=== PATIENT | female | born 1950 | race Caucasian/White ===

== ENCOUNTER → 2016-12-08 | Outpatient (REF) | payer MEDICARE ==
[2016-12-08 11:41] LABS: MEAN CORPUSCULAR HEMOGLOBIN 30.9 pg (27.0-33.0); MEAN CORPUSCULAR HGB CONC 32.9 g/dl (32.0-36.5); RED CELL DISTRIBUTION WIDTH 12.9 % (11.5-14.5); WHITE BLOOD COUNT 5.7 K/mm3 (4.0-10.0)
[2016-12-08 12:17] LABS: ALBUMIN 3.7 GM/DL (3.2-5.2); ALBUMIN/GLOBULIN RATIO 1.09 (1.00-1.93); ALKALINE PHOSPHATASE 118 U/L (45-117); ALT/SGPT 19 U/L (12-78); ANION GAP 8 MEQ/L (8-16); AST/SGOT 12 U/L (15-37); BILIRUBIN,TOTAL 0.3 MG/DL (0.2-1.0); BLOOD UREA NITROGEN 20 MG/DL (7-18); CALCIUM LEVEL 9.1 MG/DL (8.8-10.2); CARBON DIOXIDE LEVEL 30 MEQ/L (21-32); CHLORIDE LEVEL 107 MEQ/L (98-107); CHOLESTEROL LEVEL 140 MG/DL (<200); CREATININE FOR GFR 0.55 MG/DL (0.55-1.02); GLOMERULAR FILTRATION RATE > 60.0 (>45); GLUCOSE, FASTING 87 MG/DL (80-110); POTASSIUM SERUM 4.2 MEQ/L (3.5-5.1); SODIUM LEVEL 145 MEQ/L (136-145); TOTAL PROTEIN 7.1 GM/DL (6.4-8.2); TRIGLYCERIDES LEVEL 86 MG/DL (<150)
== END ==
LOC: M SFHCPLAZ 08:05
PROVIDERS: ATTEND Internal Medicine
DX: D64.9 Anemia, unspecified (principal); I48.0 Paroxysmal atrial fibrillation; E78.00 Pure hypercholesterolemia, unspecified

== ENCOUNTER → 2017-12-03 | Outpatient (REF) | payer MEDICARE ==
[2017-12-03 13:20] LABS: APPEARANCE, URINE HAZY (CLEAR); BACTERIA, URINE AUTO 2+ (NEGATIVE); BILIRUBIN, URINE AUTO NEGATIVE (NEGATIVE); BLOOD, URINE BLOOD 3+ (NEGATIVE); COLOR, URINE YELLOW (YELLOW); GLUCOSE, URINE (UA) AUTO NEGATIVE (NEGATIVE); KETONE, URINE AUTO NEGATIVE (NEGATIVE); LEUKOCYTE ESTERASE, URINE AUTO 3+ (NEGATIVE); MUCUS, URINE SMALL (NEGATIVE); NITRITE, URINE AUTO POSITIVE (NEGATIVE); PROTEIN, URINE AUTO 1+ mg/dL (NEGATIVE); RBC, URINE AUTO 33 /HPF (0-3); SPECIFIC GRAVITY URINE AUTO 1.005 (1.002-1.035); SQUAMOUS EPITHELIAL CELL UR AU 0 /HPF (0-6); UROBILINOGEN, URINE AUTO 0.2 mg/dL (0.0-2.0); WBC, URINE AUTO 65 /HPF (0-3)
== END ==
LOC: M SFHCPLAZ 12:20
DX: R30.0 Dysuria (principal)
CPT/HCPCS: 81001

== ENCOUNTER → 2017-12-12 | Outpatient (REF) | payer MEDICARE ==
[2017-12-12 13:44] LABS: HEMATOCRIT 38.5 % (36.0-47.0); HEMOGLOBIN 11.8 g/dl (12.0-15.5); MEAN CORPUSCULAR HGB CONC 30.6 g/dl (32.0-36.5); MEAN CORPUSCULAR VOLUME 94.6 fl (80.0-96.0); PLATELET COUNT, AUTOMATED 406 10^3/uL (150-450); RED BLOOD COUNT 4.07 10^6/uL (4.00-5.40); RED CELL DISTRIBUTION WIDTH 14.2 % (11.5-14.5); WHITE BLOOD COUNT 5.2 10^3/uL (4.0-10.0)
[2017-12-12 13:48] LABS: APPEARANCE, URINE CLEAR (CLEAR); BACTERIA, URINE AUTO NEGATIVE (NEGATIVE); BILIRUBIN, URINE AUTO NEGATIVE (NEGATIVE); BLOOD, URINE BLOOD NEGATIVE (NEGATIVE); COLOR, URINE YELLOW (YELLOW); GLUCOSE, URINE (UA) AUTO NEGATIVE (NEGATIVE); KETONE, URINE AUTO NEGATIVE (NEGATIVE); LEUKOCYTE ESTERASE, URINE AUTO NEGATIVE (NEGATIVE); MUCUS, URINE SMALL (NEGATIVE); NITRITE, URINE AUTO NEGATIVE (NEGATIVE); PROTEIN, URINE AUTO NEGATIVE (NEGATIVE); RBC, URINE AUTO 3 /HPF (0-3); SPECIFIC GRAVITY URINE AUTO 1.017 (1.002-1.035); SQUAMOUS EPITHELIAL CELL UR AU 0 /HPF (0-6); UROBILINOGEN, URINE AUTO 0.2 mg/dL (0.0-2.0); WBC, URINE AUTO 1 /HPF (0-3)
[2017-12-12 14:33] LABS: ALBUMIN 3.8 GM/DL (3.2-5.2); ALBUMIN/GLOBULIN RATIO 1.15 (1.00-1.93); ALKALINE PHOSPHATASE 109 U/L (45-117); ALT/SGPT 17 U/L (12-78); ANION GAP 7 MEQ/L (8-16); AST/SGOT 11 U/L (7-37); BILIRUBIN,TOTAL 0.3 MG/DL (0.2-1.0); BLOOD UREA NITROGEN 17 MG/DL (7-18); CALCIUM LEVEL 8.9 MG/DL (8.8-10.2); CARBON DIOXIDE LEVEL 30 MEQ/L (21-32); CHLORIDE LEVEL 107 MEQ/L (98-107); CHOLESTEROL LEVEL 136 MG/DL (<200); CHOLESTEROL RISK RATIO 2.566 (<5); CREATININE FOR GFR 0.48 MG/DL (0.55-1.30); GLOMERULAR FILTRATION RATE > 60.0 (>45); GLUCOSE, FASTING 81 MG/DL (70-100); HDL CHOLESTEROL 53 MG/DL (>40); LDL CHOLESTEROL 69 MG/DL (<100); MAGNESIUM LEVEL 2.3 MG/DL (1.8-2.4); NON-HDL-C 83 MG/DL; POTASSIUM SERUM 4.3 MEQ/L (3.5-5.1); SODIUM LEVEL 144 MEQ/L (136-145); TOTAL PROTEIN 7.1 GM/DL (6.4-8.2); TRIGLYCERIDES LEVEL 71 MG/DL (<150)
== END ==
LOC: M SFHCPLAZ 11:11
DX: D64.9 Anemia, unspecified (principal); I48.0 Paroxysmal atrial fibrillation; K21.9 Gastro-esophageal reflux disease without esophagitis; R31.9 Hematuria, unspecified
CPT/HCPCS: 83735

== ENCOUNTER 2018-01-16 10:50 | Emergency (ER) | payer MEDICARE ==
[2018-01-16 11:35] LABS: BASO # 0.1 10^3/uL (0.0-0.2); BASO % 1.1 % (0.0-1.0); EOS # 0.4 10^3/uL (0.0-0.50); EOS % 7.1 % (0.0-3.0); HEMATOCRIT 37.8 % (36.0-47.0); HEMOGLOBIN 11.9 g/dl (12.0-15.5); IMMATURE GRANULOCYTE % 0.4 % (0-3.0); LYMPH # 1.3 10^3/uL (1.5-4.5); LYMPH % 24.5 % (24.0-44.0); MEAN CORPUSCULAR HGB CONC 31.5 g/dl (32.0-36.5); MEAN CORPUSCULAR VOLUME 92.2 fl (80.0-96.0); MONO # 0.5 10^3/uL (0.0-0.8); MONO % 9.8 % (0.0-5.0); NEUTROPHILS % 57.1 % (36.0-66.0); PLATELET COUNT, AUTOMATED 374 10^3/uL (150-450); RED CELL DISTRIBUTION WIDTH 13.9 % (11.5-14.5); WHITE BLOOD COUNT 5.2 10^3/uL (4.0-10.0)
[2018-01-16 11:50] LABS: INR 0.96; PROTHROMBIN TIME 12.9 SECONDS (12.1-14.4)
[2018-01-16 11:51] LABS: PARTIAL THROMBOPLASTIN TIME 28.6 SECONDS (25.4-37.6)
[2018-01-16] MEDS: ACETAMINOPHEN TAB 650MG DOSE (2X325MG) PO (12:04)
[2018-01-16 12:05] LABS: ALBUMIN 3.5 GM/DL (3.2-5.2); ALBUMIN/GLOBULIN RATIO 0.78 (1.00-1.93); ALKALINE PHOSPHATASE 124 U/L (45-117); ALT/SGPT 22 U/L (12-78); ANION GAP 7 MEQ/L (8-16); AST/SGOT 19 U/L (7-37); BILIRUBIN,DIRECT 0.1 MG/DL (0.0-0.2); BILIRUBIN,TOTAL 0.5 MG/DL (0.2-1.0); BLOOD UREA NITROGEN 10 MG/DL (7-18); CALCIUM LEVEL 9.3 MG/DL (8.8-10.2); CARBON DIOXIDE LEVEL 29 MEQ/L (21-32); CHLORIDE LEVEL 104 MEQ/L (98-107); CPK CREATINE PHOSPHOKINASE 61 U/L (26-192); CREATININE FOR GFR 0.54 MG/DL (0.55-1.30); FREE T4 1.04 NG/DL (0.76-1.46); GLOMERULAR FILTRATION RATE > 60.0 (>45); GLUCOSE, FASTING 84 MG/DL (70-100); LIPASE 87 U/L (73-393); NT-PRO BNP 77 PG/ML (<125); POTASSIUM SERUM 4.1 MEQ/L (3.5-5.1); SODIUM LEVEL 140 MEQ/L (136-145); TROPONIN I < 0.02 NG/ML (< 0.10)
[2018-01-16] MEDS ORDERED: ISOVUE-370 76% 100ML VIAL (Q9967) As Ordered (12:12)
[2018-01-16 12:30] LABS: CK-MB VALUE MASS < 1.0 NG/ML (<3.6); MB/CK RELATIVE INDEX 1.64 (< OR =4)
== END 2018-01-16 13:25 | disposition home or self-care (01) ==
LOC: M ED 10:50
DX: R07.9 Chest pain, unspecified (principal); M54.9 Dorsalgia, unspecified; R94.31 Abnormal electrocardiogram [ECG] [EKG]; I48.91 Unspecified atrial fibrillation; Z88.2 Allergy status to sulfonamides; Z79.899 Other long term (current) drug therapy
CPT/HCPCS: Q9967

== ENCOUNTER → 2018-02-18 | Outpatient (CLI) | payer MEDICARE | LOC: M WHC 11:04 | DX: Z13.820 Encounter for screening for osteoporosis (principal); M81.0 Age-related osteoporosis without current pathological fracture | CPT/HCPCS: 77080 ==

== ENCOUNTER → 2018-02-18 | Outpatient (CLI) | payer MEDICARE | LOC: M WHC 10:57 | DX: N64.4 Mastodynia (principal) | CPT/HCPCS: 76642 ==

== ENCOUNTER → 2018-04-16 | Outpatient (REF) | payer MEDICARE ==
[~2018-04-16] MED LIST: ASPI1TAB PO; CALC600T60 PO; MAGN1TAB39 PO; MULTCAP9 PO; NEXI40GR PO; NORCOTAB PO
[2018-04-17 14:44] LABS: BLOOD UREA NITROGEN 16 MG/DL (7-18); CALCIUM LEVEL 8.7 MG/DL (8.8-10.2); CARBON DIOXIDE LEVEL 29 MEQ/L (21-32); CHLORIDE LEVEL 104 MEQ/L (98-107); CREATININE FOR GFR 0.53 MG/DL (0.55-1.30); GLOMERULAR FILTRATION RATE > 60.0 (>45); GLUCOSE, FASTING 65 MG/DL (70-100); POTASSIUM SERUM 4.7 MEQ/L (3.5-5.1); SODIUM LEVEL 141 MEQ/L (136-145)
== END ==
LOC: M LAB REF 14:27
PROVIDERS: ATTEND Internal Medicine
DX: K76.9 Liver disease, unspecified (principal)

== ENCOUNTER → 2018-04-16 | Outpatient (REF) | payer MEDICARE ==
[2018-04-16 19:14] LABS: INR 0.99; PARTIAL THROMBOPLASTIN TIME 29.4 SECONDS (25.4-37.6); PROTHROMBIN TIME 13.2 SECONDS (12.1-14.4)
[2018-04-16 19:37] LABS: ALBUMIN 3.7 GM/DL (3.2-5.2); ALT/SGPT 62 U/L (12-78); BILIRUBIN,DIRECT 0.1 MG/DL (0.0-0.2); BILIRUBIN,TOTAL 0.2 MG/DL (0.2-1.0); TOTAL PROTEIN 7.8 GM/DL (6.4-8.2)
[2018-04-19 12:29] LABS: CA19-9 TUMOR MARKER,CARBOHYDRA 8.6 U/ML (<35.0)
== END ==
LOC: M LAB REF 16:55
PROVIDERS: ATTEND Internal Medicine Pulmonary Disease
DX: R91.8 Other nonspecific abnormal finding of lung field (principal)

== ENCOUNTER → 2018-04-17 | Outpatient (CLI) | payer MEDICARE ==
--- NOTE | 2018-04-17 09:13 | REP ---
Clinical: Abnormal liver findings. Technique: Garcia scale ultrasound using curved array transducer. Findings: The liver demonstrates heterogeneous echotexture and includes multiple hypoechoic mass lesions most notably within the right lobe measuring 4.8 x 3.8 x 4.1 cm, 3.3 x 1.6 x 3.3 cm, and 3.1 x 2.2 x 2.5 cm. Further smaller lesions cannot be excluded and are suspected. The the pancreas is incompletely evaluated due to interposed bowel gas but visualized portions appear normal. The gallbladder is normal without gallstones, wall thickening or pericholecystic fluid. No biliary ductal dilatation is appreciated, and the common bile duct measures 5.2 mm diameter. The right kidney is normal in reniform shape without hydronephrosis and measures 10.0 x 4.5 x 4.3 cm and demonstrates normal extrarenal pelvis. No ascites. Visualized portions of the abdominal aorta normal. Impression: Multiple hypoechoic lesions within the liver measuring up to 4.8 cm maximal diameter cannot be further characterized by ultrasound. Consider pre and postcontrast CT of the abdomen using hepatic mass protocol for more definitive evaluation. Electronically Signed by Hunter Puentes MD 04/17/2018 09:05 A
== END ==
LOC: M RAD 07:40
PROVIDERS: ATTEND Internal Medicine Pulmonary Disease
DX: R93.2 Abnormal findings on diagnostic imaging of liver and biliary tract (principal)

== ENCOUNTER → 2018-04-23 | Outpatient (CLI) | payer MEDICARE ==
[~2018-04-23] MED LIST changes: +ISOVUE-370 76% 100ML VIAL (Q9967) As Ordered ONE
--- NOTE | 2018-04-23 20:53 | REP ---
CT abdomen and pelvis with a IV and oral contrast: History: Hepatic lesions consistent with metastatic disease. Comparison CT chest imaging April 09, 2018. CT contrast dose: 100 mL of intravenous Isovue 370. 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 Multiple hepatic masses are confirmed consistent with metastatic disease. These ill-defined hypodense lesions range in size up to 4.9 x 4.1 cm. They are noted in the right and left lobe of the liver. There are multiple liver lesions. The liver is not enlarged overall. Spleen is normal in size homogeneous in texture. No adrenal lesion is observed. No pancreatic mass lesion is seen. The gallbladder is small and contracted but unremarkable. The kidneys enhance symmetrically and are morphologically intact. There is moderate left periaortic retroperitoneal lymphadenopathy. This is fairly bulky. The largest left periaortic lymph node measures 3.7 x 2.2 x 2.2. This displaces the gonadal veins laterally. A second left periaortic lymph node measures 3.6 x 2.1 x 1.9 cm. The uterus is surgically absent. There is a small simple appearing cyst in the right adnexa 1.9 cm in diameter. However, there is a large multicystic appearing mass in the left adnexa measuring 9.3 by 8.2 by 8.1 cm. No pelvic mass or adenopathy is seen apart from this. This may reflect primary ovarian malignancy. Small and large intestinal bowel loops are unremarkable in the abdomen and pelvis. Bone window settings show no bony destructive lesion. The appendix is surgically absent by history. Impression: Multiple metastatic liver masses. Fairly bulky periaortic retroperitoneal lymphadenopathy. Large left pelvic mass consistent with primary ovarian malignancy or large confluent adenopathy. No evidence of ascites. Electronically Signed by Bebo Peck MD 04/24/2018 06:37 P
== END ==
LOC: M RAD 15:28
PROVIDERS: ATTEND Internal Medicine
DX: C78.7 Secondary malignant neoplasm of liver and intrahepatic bile duct (principal); R59.0 Localized enlarged lymph nodes; R19.04 Left lower quadrant abdominal swelling, mass and lump
CPT/HCPCS: 74178; Q9967

== ENCOUNTER → 2018-04-25 | Outpatient (CLI) | payer MEDICARE ==
[~2018-04-25] MED LIST changes: -ISOVUE-370 76% 100ML VIAL (Q9967) As Ordered ONE; +LIDOCAINE 1% MDV 20ML VIAL As Ordered ONE; +MIDAZOLAM INJ 2 MG/2 ML VIAL (J2250) As Ordered ONE; +fentaNYL 100 MCG/2 ML INJECTION (J3010) As Ordered ONE
--- NOTE | 2018-04-25 17:53 | REP ---
ULTRASOUND-GUIDED LIVER BIOPSY The procedure was performed under the direct supervision of Dr. Peck. The patient has a history of multiple metastatic liver masses seen on a previous CT scan dated 04/23/2018. The risks and benefits of the procedure were explained to the patient and informed consent was obtained. A lesion in the right lobe of the liver was localized using ultrasound guidance. The skin was prepped and draped in a sterile fashion. 1% lidocaine was used as a local anesthetic. Using ultrasound guidance a 19/20 gauge coaxial needle biopsy system was inserted and advanced into the mass. Five core biopsy samples were obtained and sent to lab. The patient tolerated the procedure well and there were no immediate complications. After the appropriate amount of monitored convalescence the patient was discharged from the department. Reviewed by JALEN Winters 04/25/2018 02:43 P Electronically Signed by Bebo Peck MD 04/25/2018 05:44 P
== END ==
LOC: M RADPRO 08:04
PROVIDERS: ATTEND Internal Medicine
DX: C78.7 Secondary malignant neoplasm of liver and intrahepatic bile duct (principal); Z79.82 Long term (current) use of aspirin; Z79.899 Other long term (current) drug therapy; Z88.2 Allergy status to sulfonamides; Z91.018 Allergy to other foods
CPT/HCPCS: 47000; 76942; 88307; 88341; 88342; J2250; J3010

== ENCOUNTER → 2018-04-29 | Outpatient (REF) | payer MEDICARE ==
[~2018-04-29] MED LIST changes: -LIDOCAINE 1% MDV 20ML VIAL As Ordered ONE; -MIDAZOLAM INJ 2 MG/2 ML VIAL (J2250) As Ordered ONE; -fentaNYL 100 MCG/2 ML INJECTION (J3010) As Ordered ONE
== END ==
LOC: M SFHCPLAZ 12:22
PROVIDERS: ATTEND Internal Medicine
DX: C56.9 Malignant neoplasm of unspecified ovary (principal); Z53.8 Procedure and treatment not carried out for other reasons

== ENCOUNTER → 2018-04-29 | Outpatient (CLI) | payer MEDICARE ==
[2018-04-29 19:56] LABS: BASO # 0.1 10^3/uL (0.0-0.2); BASO % 0.9 % (0.0-1.0); EOS # 0.2 10^3/uL (0.0-0.50); EOS % 2.8 % (0.0-3.0); HEMATOCRIT 37.2 % (36.0-47.0); HEMOGLOBIN 11.4 g/dl (12.0-15.5); LYMPH % 14.6 % (24.0-44.0); MEAN CORPUSCULAR HEMOGLOBIN 28.8 pg (27.0-33.0); MEAN CORPUSCULAR HGB CONC 30.6 g/dl (32.0-36.5); MEAN CORPUSCULAR VOLUME 93.9 fl (80.0-96.0); MONO # 0.9 10^3/uL (0.0-0.8); MONO % 13.8 % (0.0-5.0); NEUTROPHILS # 4.5 10^3/uL (1.8-7.7); NEUTROPHILS % 67.8 % (36.0-66.0); PLATELET COUNT, AUTOMATED 379 10^3/uL (150-450); RED BLOOD COUNT 3.96 10^6/uL (4.00-5.40); WHITE BLOOD COUNT 6.7 10^3/uL (4.0-10.0)
== END ==
LOC: M SMT 12:59
PROVIDERS: ATTEND Internal Medicine
DX: C56.9 Malignant neoplasm of unspecified ovary (principal)

== ENCOUNTER → 2018-05-17 | Outpatient (CLI) | payer MEDICARE ==
[~2018-05-17] MED LIST changes: +CLIN1GEL22; +LIDO2.5C15 TOP; +MAGN64TASA PO; +ONDA8TAB8 PO; +PROC10TA4 PO; +RANI15TA PO; +RETI0.0215 TOP; +SUCR1TAB56 PO; +TRIA0.1L; +VITA500T3 PO
--- NOTE | 2018-05-17 15:54 | REP ---
SOFT-TISSUE ULTRASOUND LEFT BREAST History: Recent development of palpable lump in the inferior aspect of the left breast. History of left breast soreness and pain radiating to the axilla. Recently diagnosed metastatic ovarian carcinoma. Sonographic findings: Scanning in the inferior aspect 7 o'clock position left breast demonstrates a fixed elongate hypoechoic to anechoic expansile rib lesion deep to the breast tissue in the left chest wall. The expansile anterior rib lesion measures 3.6 x 1.5 x 2.1 cm in overall dimension. No breast mass lesion or cyst is seen. Heterogeneous fibroglandular background echotexture is seen. Sonogram is otherwise unremarkable. Impression: BIRADS category 0 incomplete imaging evaluation. Expansile and suspicious rib lesion deep to the breast tissue at approximately the left anterior 5th rib. 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 A PET/CT study is already scheduled and will provide additional information. The findings were reviewed with the referring provider at the time of this exam. Electronically Signed by Bebo Peck MD 05/17/2018 05:05 P
== END ==
LOC: M RAD 14:17
PROVIDERS: ATTEND Internal Medicine Hematology & Oncology
DX: R92.8 Other abnormal and inconclusive findings on diagnostic imaging of breast (principal)

== ENCOUNTER → 2018-05-20 | Outpatient (CLI) | payer MEDICARE ==
[~2018-05-20] MED LIST changes: +XANA0.5T PO
--- NOTE | 2018-05-20 14:04 | REP ---
Chest x-ray: Two views. History: Abnormal lung findings. Comparison chest x-ray January 16, 2018. Findings: The lungs are well inflated and clear. Pleural angles are sharp. Cardiomediastinal silhouette is unremarkable. There is diffuse osteopenia. No focal bony abnormality is appreciated. Impression: No active disease. Electronically Signed by Bebo Peck MD 05/20/2018 01:55 P
== END ==
LOC: M SMT 13:01
PROVIDERS: ATTEND Thoracic Surgery (Cardiothoracic Vascular Surgery)
DX: R91.8 Other nonspecific abnormal finding of lung field (principal)

== ENCOUNTER 2018-05-21 09:54 | Day surgery (SDC) | payer MEDICARE ==
[~2018-05-21] VITALS: Ht 162.6 cm; Wt 67.3 kg
[~2018-05-21 09:54] MED LIST changes: -LIDO2.5C15 TOP; -ONDA8TAB8 PO; -PROC10TA4 PO; -XANA0.5T PO
[2018-05-21] MEDS ORDERED: LR 1,000 ML IV ONE (10:15)
[2018-05-21] MEDS ORDERED: MUPIROCIN 2% OINT 22 GM TUBE TOP ONE (10:30)
[2018-05-21] MEDS ORDERED: PROPOFOL 500 MG/50 ML VIAL As Ordered ONE (11:42)
[2018-05-21] MEDS ORDERED: MIDAZOLAM INJ 2 MG/2 ML VIAL (J2250) As Ordered ONE (11:43)
[2018-05-21] MEDS ORDERED: fentaNYL 100 MCG/2 ML INJECTION (J3010) As Ordered ONE (11:43)
[2018-05-21] MEDS ORDERED: LIDOCAINE 2% INJ 100 MG/5 ML SDV (FOR ANES.) As Ordered ONE (11:43)
[2018-05-21] MEDS ORDERED: PROPOFOL 200 MG/20 ML VIAL As Ordered ONE (11:48)
[2018-05-21] MEDS ORDERED: HEPARIN SOD (PORCINE) 5000 UNITS/ML VIAL As Ordered ONE (12:10)
[2018-05-21] MEDS ORDERED: BUPIVACAINE LIPOSOME/PF 1.3% 20ML VIAL (13.3MG/ML)(EXPAREL)(C9290 PER1MG) As Ordered ONE (12:10)
[2018-05-21] MEDS ORDERED: LIDOCAINE 1% SDV INJ 30 ML VIAL As Ordered ONE (12:10)
[2018-05-21] MEDS ORDERED: dexameTHASONE 4 MG/ML 1ML VIAL (J1100) As Ordered ONE (13:01)
[2018-05-21] MEDS ORDERED: ONDANSETRON 4MG/2ML VIAL (J2405) As Ordered ONE (13:01)
--- NOTE | 2018-05-21 13:23 | REP ---
Chest x-ray: Partial study single view. History: Yfpjxf-E-Afvf insertion. 26 seconds of fluoroscopy time is reported. Findings: A single last image hold fluoroscopically obtained spot radiograph of the right chest documents right subclavian Pzdedp-M-Wtds catheter placement. Electronically Signed by Bebo Peck MD 05/21/2018 01:14 P
--- NOTE | 2018-05-21 13:46 | REP ---
CHEST, PORTABLE: Single view of the chest is performed. Right Mediport catheter is placed. The tip is in the superior vena cava. There is no pneumothorax. No new infiltrate is seen. Heart is normal in size and the mediastinal silhouette is unchanged. IMPRESSION: Placement of right central venous catheter with the tip in the superior vena cava. No pneumothorax. Electronically Signed by Johnny Garcia MD 05/22/2018 09:10 A
[2018-05-21] MEDS ORDERED: LIDO2.5C15 TOP (13:47)
[2018-05-21] MEDS ORDERED: PROC10TA4 PO (13:47)
[2018-05-21] MEDS ORDERED: ONDA8TAB8 PO (13:47)
[2018-05-21 14:10] VITALS: BP 162/69
--- NOTE | 2018-05-22 15:01 | RO ---
DATE OF PROCEDURE: 05/21/2018 PREPROCEDURE DIAGNOSIS: Metastatic ovarian carcinoma, in need of vascular access for chemotherapy. POSTPROCEDURE DIAGNOSIS: Metastatic ovarian carcinoma, in need of vascular access for chemotherapy. PROCEDURE: Insertion of right subclavian vein PowerPort with fluoroscopic control. SURGEON: Catarino Rahman MD VISUAL MANAGER: ANESTHESIA: Monitored anesthesia care (MAC). FINDINGS: All contours were smooth, and the catheter was placed at the junction of the superior vena cava (SVC) and the right atrium. DESCRIPTION OF PROCEDURE: Under satisfactory MAC anesthesia, the patient was prepped and draped in the usual sterile fashion. The infraclavicular fossa on the right side was infiltrated with 1% lidocaine. The vein was found on the first pass, and a wire was passed with production of premature ventricular contractions without difficulty. The port site was marked and infiltrated with Exparel. Incision was made and carried down into the subcutaneous tissue where subcutaneous pocket was then created by use of electrocautery and blunt dissection. The wire tract was then incised, dilated, and a Peel-Away introducer placed. Catheter was placed, low numbers down, into the right atrium. A tunnel was then created between the wire site and the port site and the catheter pulled through and positioned under fluoroscopic control at the junction of the superior vena cava and the right atrium. The catheter was cut to an appropriate size. Collar was placed and connected to the port. The port was then flushed with heparinized saline. The port was then secured to the chest wall with two #2-0 silk sutures. A final flush of 100 units/mL of heparin was then administered. Port aspirated and flushed well. Final x-rays were taken and showed all contours to be smooth and the catheter in the proper position. The wound was closed with running #3-0 Vicryl suture for the subcutaneous tissues and running #4-0 Monocryl subcuticular for the skin. Patient tolerated the procedure well and left the operating room in satisfactory condition for the recovery room.
[2018-05-24] MEDS ORDERED: XANA0.5T PO (13:26)
== END 2018-05-21 14:31 | disposition home or self-care (01) ==
LOC: M SDC 09:54
PROVIDERS: ATTEND Thoracic Surgery (Cardiothoracic Vascular Surgery)
DX: C56.9 Malignant neoplasm of unspecified ovary (principal); C78.7 Secondary malignant neoplasm of liver and intrahepatic bile duct; Z45.2 Encounter for adjustment and management of vascular access device; K21.9 Gastro-esophageal reflux disease without esophagitis; I25.2 Old myocardial infarction; M81.0 Age-related osteoporosis without current pathological fracture; Z88.2 Allergy status to sulfonamides; Z79.82 Long term (current) use of aspirin; Z79.899 Other long term (current) drug therapy
CPT/HCPCS: 36561; 71045; 76000; C1788; C9290; J0690; J1100; J2250; J2405; J3010

== ENCOUNTER → 2018-05-22 | Outpatient (CLI) | payer MEDICARE ==
[~2018-05-22] MED LIST changes: +LIDO2.5C15 TOP; +ONDA8TAB8 PO; +PROC10TA4 PO; +XANA0.5T PO
--- NOTE | 2018-05-22 17:05 | REP ---
PET/CT: History: Staging metastatic left ovarian carcinoma. Comparisons: Comparison is made with CT study of the abdomen and chest from March and May 08, 2018 as well as left breast sonography from May 17, 2018. TECHNIQUE: 57 minutes following the intravenous injection of a 8.44 mCi dose of F-18 FDG, three-dimensional PET scintigraphy is acquired from the skull base to the proximal thighs. Triplanar noncontrast CT scanning is acquired through the same anatomic range for attenuation correction, and image registration with scan parameters optimized to minimize radiation exposure to the patient. PET scintigraphy and CT datasets were fused and displayed on a workstation with multiplanar and projection display capability. PET/CT Findings: The known large left pelvic mass shows a predominantly peripheral pattern of hypermetabolic uptake consistent with cystic tumor versus central necrosis. Maximum standard uptake value in the peripheral hypermetabolic sections ranges up to a maximum S U V value of 29.81 inferiorly. The known left periaortic lymphadenopathy is hypermetabolic as well, maximum standard uptake value 14.28. Multiple hypermetabolic hepatic mets are seen. These range in avidity up to a maximum standard uptake value of 15.28. There is a hypermetabolic mass surrounding the left anterior 5th rib. This corresponds to the sonographic findings on left breast sonography and the palpable lump on physical exam. Maximum standard uptake value in this lesion is 9.39. There is one other skeletal lesion. This is in the left L5 pedicle where there is a small 1 cm focus of hypermetabolic uptake with maximum SUV of 6.52. There are no corresponding bony changes on the accompanying CT. There is a mildly hypermetabolic lung nodule in the right upper lobe. Maximum standard uptake value is 4.91. There is non hypermetabolic FDG accumulation in the left upper lobe nodule, maximum SUV 1.49. Impression: The left pelvic mass is hypermetabolic. There is evidence of metastatic periaortic lymphadenopathy, with liver, lung, and skeletal metastatic lesions as above. Electronically Signed by Bebo Peck MD 05/22/2018 05:15 P
== END ==
LOC: M PLARAD 13:03
PROVIDERS: ATTEND Internal Medicine Hematology & Oncology
DX: C56.2 Malignant neoplasm of left ovary (principal); C79.51 Secondary malignant neoplasm of bone; C78.01 Secondary malignant neoplasm of right lung; C78.7 Secondary malignant neoplasm of liver and intrahepatic bile duct
CPT/HCPCS: 78815; A9552

== ENCOUNTER → 2018-05-30 | Outpatient (CLI) | payer MEDICARE ==
[~2018-05-30] MED LIST changes: +PROHANCE 279.3MG/ML 15ML VIAL (A9576) As Ordered ONE
--- NOTE | 2018-05-31 08:56 | REP ---
MRI BRAIN WITHOUT CONTRAST: HISTORY: Memory difficulty. CONTRAST: ProHance 13 mL. Areas of increased signal intensity on T2-weighted images are present in the periventricular and subcortical white matter and barbie. This represents small vessel ischemic disease. There is no intraparenchymal hemorrhage, infarct, mass or midline shift. There is no abnormal enhancement. The ventricular system is normal in appearance. There is no extracerebral collection. The visualized sinuses are clear. IMPRESSION: Small vessel ischemic disease. Electronically Signed by Bello Stephenson MD 05/31/2018 09:12 A
== END ==
LOC: M RAD 16:57
PROVIDERS: ATTEND Internal Medicine Hematology & Oncology
DX: C56.9 Malignant neoplasm of unspecified ovary (principal); C78.7 Secondary malignant neoplasm of liver and intrahepatic bile duct; I67.82 Cerebral ischemia; C79.51 Secondary malignant neoplasm of bone
CPT/HCPCS: 70553; A9576

== ENCOUNTER → 2018-05-30 | Outpatient (CLI) | payer MEDICARE ==
[~2018-05-30] MED LIST changes: -PROHANCE 279.3MG/ML 15ML VIAL (A9576) As Ordered ONE
--- NOTE | 2018-05-30 14:15 | REP ---
Chest two views HISTORY: Abnormal lung field Comparison: 05/21/2018 The lungs are clear. The heart is normal in size. The pulmonary vasculature is normal in appearance. The bony structure is intact. An Kjgcfg-G-Seub catheter is present. IMPRESSION: No acute disease. Electronically Signed by Bello Stephenson MD 05/30/2018 02:05 P
== END ==
LOC: M SMT 13:22
PROVIDERS: ATTEND Thoracic Surgery (Cardiothoracic Vascular Surgery)
DX: R91.8 Other nonspecific abnormal finding of lung field (principal)

== ENCOUNTER 2018-06-10 01:43 | Emergency (ER) | payer MEDICARE ==
[~2018-06-10] VITALS: Ht 162.6 cm; Wt 66.8 kg
[~2018-06-10 01:43] MED LIST changes: -ASPI1TAB PO; +ASPI81TA26 PO; -CARB50IN13 IV; -FLEC50HA PO; +HYDR-3715 PO; -NORCOTAB PO; -PACL150I IV; -TAXOL; -TRIA0.1L; +TRIA2LOT
[2018-06-10] MEDS ORDERED: CARB50IN13 IV (01:52)
[2018-06-10] MEDS ORDERED: TAXOL (01:52)
[2018-06-10 02:10] LABS: HEMATOCRIT 36.7 % (36.0-47.0); HEMOGLOBIN 11.6 g/dl (12.0-15.5); MEAN CORPUSCULAR HEMOGLOBIN 29.4 pg (27.0-33.0); MEAN CORPUSCULAR HGB CONC 31.6 g/dl (32.0-36.5); MEAN CORPUSCULAR VOLUME 92.9 fl (80.0-96.0); PLATELET COUNT, AUTOMATED 250 10^3/uL (150-450); RED BLOOD COUNT 3.95 10^6/uL (4.00-5.40); WHITE BLOOD COUNT 21.6 10^3/uL (4.0-10.0)
[2018-06-10] MEDS ORDERED: METOPROLOL 5 MG/5 ML VIAL IV STA (02:13)
[2018-06-10] MEDS: FLECAINIDE 50MG TABLET PO ONE ×2 (02:15→02:18)
[2018-06-10 02:30] VITALS: BP 158/97
[2018-06-10 02:30] LABS: BASOPHILS 1 % (0-4); DOHLE BODIES 2+; EOSINOPHILS 1 % (0-5); LYMPHOCYTES 10 % (16-52); METAMYELOCYTES 1 % (0-0); MONOCYTES 9 % (0-8); NEUTROPHILS 78 % (35-75); PLATELET ESTIMATE NORMAL (NORMAL)
[2018-06-10 02:31] LABS: TOXIC GRANULATION 1+
[2018-06-10 02:32] LABS: HYPOCHROMASIA 1+; SMUDGE CELLS 1+
[2018-06-10 02:33] LABS: ANISOCYTOSIS 1+
[2018-06-10 02:35] LABS: BLOOD UREA NITROGEN 10 MG/DL (7-18); CARBON DIOXIDE LEVEL 30 MEQ/L (21-32); CHLORIDE LEVEL 101 MEQ/L (98-107); CK-MB VALUE MASS < 1.0 NG/ML (<3.6); CPK CREATINE PHOSPHOKINASE 42 U/L (26-192); CREATININE FOR GFR 0.63 MG/DL (0.55-1.30); GLOMERULAR FILTRATION RATE > 60.0 (>45); GLUCOSE, FASTING 112 MG/DL (70-100); MB/CK RELATIVE INDEX 2.38 (< OR =4); POTASSIUM SERUM 3.7 MEQ/L (3.5-5.1); SODIUM LEVEL 138 MEQ/L (136-145); TROPONIN I < 0.02 NG/ML (< 0.10)
[2018-06-10] MEDS ORDERED: METOPROLOL TART 25 MG TABLET PO ONE (02:45)
[2018-06-10] MEDS ORDERED: FLECAINIDE 50MG TABLET PO ONE ×2 (02:45→03:00)
[2018-06-10] MEDS ORDERED: FLEC50HA PO (04:40)
[2018-06-10 04:45] VITALS: BP 108/62
--- NOTE | 2018-06-10 05:48 | ECGEPIP ---
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
--- NOTE | 2018-06-10 08:51 | REP ---
PORTABLE CHEST: AP portable view of the chest is performed and compared to prior study of 05/30/2018. There is no acute infiltrate. The heart is normal in size. The mediastinal silhouette is unchanged. Right central venous catheter is seen with the tip in the superior vena cava. IMPRESSION: No acute infiltrate. Electronically Signed by Johnny Garcia MD 06/10/2018 09:39 A
--- NOTE | 2018-06-10 21:06 | ECGEPIP ---
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
[2018-06-12] MEDS ORDERED: PACL150I IV (08:33)
[2018-06-19] MEDS ORDERED: DOXY-350 PO (12:58)
== END 2018-06-10 05:06 | disposition home or self-care (01) ==
LOC: M ED 01:43
DX: I48.91 Unspecified atrial fibrillation (principal); D64.9 Anemia, unspecified; K21.9 Gastro-esophageal reflux disease without esophagitis; C56.9 Malignant neoplasm of unspecified ovary; C79.51 Secondary malignant neoplasm of bone; Z88.2 Allergy status to sulfonamides; Z91.011 Allergy to milk products; Z91.018 Allergy to other foods; Z79.899 Other long term (current) drug therapy; Z79.82 Long term (current) use of aspirin

== ENCOUNTER → 2018-06-10 | Outpatient (REF) | payer MEDICARE ==
[~2018-06-10] MED LIST changes: +CARB50IN13 IV; +FLEC50HA PO; +PACL150I IV; +TAXOL
[2018-06-11 17:33] LABS: FREE T4 1.29 NG/DL (0.76-1.46); THYROID STIMULATING HORMONE 1.75 uIU/ML (0.358-3.740)
== END ==
LOC: M SFHCPLAZ 16:23
PROVIDERS: ATTEND Internal Medicine
DX: I48.0 Paroxysmal atrial fibrillation (principal)

== ENCOUNTER → 2018-07-23 | Outpatient (CLI) | payer MEDICARE ==
[~2018-07-23] MED LIST changes: +AUGM500T34 PO; +CARB50IN13 IV; +CIPR-249 PO; +DOXY-350 PO; +FLEC50HA PO; +PACL150I IV; +PROHANCE 279.3MG/ML 15ML VIAL (A9576) As Ordered ONE; +TAXOL; +TRIA2LOT TOP
--- NOTE | 2018-07-23 21:25 | REP ---
MRI brain without and with IV gadolinium: History: Ovarian carcinoma. Sudden onset right leg numbness and tingling. Comparison MRI study is from May 30, 2018. The gadolinium enhancement dose is 13 mL of intravenous ProHance. Technique: Axial and sagittal imaging planes are utilized for T1 and T2-weighted scans. Sequences include spin-echo, fast spin echo, FLAIR, and diffusion weighted sequences. MRI findings: No bony calvarial lesion is seen. No intraorbital abnormality is appreciated. No evidence of intracranial mass lesion is seen. There are periventricular white matter hyperintensities and subcortical white matter hyperintensities on T2-weighted scans consistent with small vessel change. These are stable when compared with the May 30, 2018 prior study. There is no evidence of intracranial mass lesion. Diffusion-weighted scans show no evidence to suggest acute ischemia. Postcontrast images show no abnormal intracranial contrast enhancement. Impression: Small vessel changes as before. There is no evidence of intracranial metastasis. No acute infarction or mass seen. Electronically Signed by Bebo Peck MD 07/23/2018 10:39 P
--- NOTE | 2018-07-23 21:29 | REP ---
MRI lumbar spine without and with IV gadolinium: History: Ovarian carcinoma. Sudden onset of right lower extremity numbness and tingling. Technique: Sagittal and axial T1 and T2-weighted scans are acquired in the usual fashion with and without fat saturation. Sequences include spin echo, turbo spin-echo, and STIR imaging sequences. Gadolinium enhancement dose is 13 ml of intravenous ProHance. MRI findings: Lumbar vertebral body heights are preserved. Alignment is normal. There is a 16 mm focus of low T1, high STIR signal intensity with fairly avid contrast enhancement involving the left pedicle at L5. This corresponds to the area of hypermetabolic uptake on recent PET-CT and is consistent with a small hematogenous skeletal metastasis. There is no evidence of extra osseous or epidural disease at this level however. Cortical and medullary bone signal intensity are otherwise normal. The tip of the conus medullaris is normal in position and appearance at L1. There appear to be small left periaortic lymph nodes, the largest of these measures 1 cm in short axis dimension. No paravertebral soft-tissue mass is appreciated. No other abnormal gadolinium enhancement is seen. There are mild facet hypertrophy changes at the L5-S1 and L4-5 bilaterally. These two discs are slightly narrowed. No disc herniation is seen. The exam is otherwise unremarkable. Impression: The previously identified skeletal metastasis involving the left pedicle at L5 is again seen 1.6 cm in greatest diameter. There is no evidence of cauda equina or other significant thecal sac compression. Electronically Signed by Bebo Peck MD 07/23/2018 10:39 P
== END ==
LOC: M RAD 15:56
PROVIDERS: ATTEND Internal Medicine Hematology & Oncology
DX: C56.9 Malignant neoplasm of unspecified ovary (principal); C79.51 Secondary malignant neoplasm of bone; C79.31 Secondary malignant neoplasm of brain
CPT/HCPCS: 70553; 72158; A9576

== ENCOUNTER → 2018-07-25 | Outpatient (CLI) | payer MEDICARE ==
[~2018-07-25] MED LIST changes: -PROHANCE 279.3MG/ML 15ML VIAL (A9576) As Ordered ONE
--- NOTE | 2018-07-25 19:36 | ECHO ---
DATE OF PROCEDURE: 07/25/2017 AGE: 67 GENDER: Female HEIGHT: 65 inches WEIGHT: 146 pounds BODY SURFACE AREA: 1.73 m2 PATIENT LOCATION: outpatient. REFERRING PHYSICIAN: Dr. Ralph Maldonado INDICATION: Potentially cardiotoxic chemotherapy. 2-D MEASUREMENTS: RV: 3.4 cm LV: 4.1 cm Septum: 0.9 cm Posterior wall: 0.9 cm Aortic root: 2.9 cm LA: 3.0 cm LVEF: 65% DOPPLER MEASUREMENTS: AV: 1.4 m/s LVOT: 0.98 m/s LVOT diameter: 1.9 cm MV-E: 82, A: 84, EA ratio: 1 Early mitral deceleration time: 232 ms E prime: 10, A prime: 9.6 E/E prime ratio: 8.2 PV: 0.8 m/s Pulmonary artery acceleration time: 120 ms RVSP: 27 mmHg IVC: 1.4 cm COMMENTS: Normal sinus rhythm without intraventricular conduction disturbance. Normal left ventricular size, wall thickness and wall motion. Normal left atrial size and Doppler assessment of LV diastolic function and current estimated mean left atrial pressure. Normal right heart chamber sizes and motion with Doppler evidence of pulmonary arterial pressure upper limits of normal. Normal IVC size and collapse against an elevated central venous pressure. Normal appearing and functioning valvular structures. Normal aortic root size. No apparent intracardiac mass or pericardial effusion.
== END ==
LOC: M CARPUL 11:38
PROVIDERS: ATTEND Internal Medicine Hematology & Oncology
DX: Z01.818 Encounter for other preprocedural examination (principal); C56.9 Malignant neoplasm of unspecified ovary; Z92.21 Personal history of antineoplastic chemotherapy

== ENCOUNTER → 2018-08-07 | Outpatient (CLI) | payer MEDICARE ==
--- NOTE | 2018-08-08 15:38 | REP ---
REASON: History of ovarian carcinoma. COMPARISON: PET/CT multiple, latest 05/22/2018. After the intravenous administration of 9.76 millicuries of FDG 18 triplane whole body PET/CT was performed from the skull base of the mid thigh. The extensive hypermetabolic activity seen in the retroperitoneum on the prior examination of 05/22/2018 has abated. The markedly abnormal large hypermetabolic foci seen previously in the liver have also abated. The nodule seen previously in the right lung upper lobe which had maximal SUV values of 4.9 shows no abnormal hypermetabolic activity today. The hypermetabolic activity seen previously in the left hemipelvis has also abated, however, a large mass persists. There are multiple foci of hypermetabolism seen in the bone marrow particularly the spine possibly secondary to chemo reactive change and/or underlying but treated skeletal metastatic disease. No other areas of abnormal hypermetabolic activity seen in the neck, chest, abdomen, or pelvis. IMPRESSION: There has been significant improvement in the appearance of the PET findings as described above when compared to the latest prior of 05/22/2018. Electronically Signed by Devendra Cullen DO 08/08/2018 03:51 P
== END ==
LOC: M PLARAD 13:26
PROVIDERS: ATTEND Internal Medicine Hematology & Oncology
DX: C56.2 Malignant neoplasm of left ovary (principal)

== ENCOUNTER → 2018-08-15 | Outpatient (REF) | payer MEDICARE ==
[2018-08-15 15:06] LABS: FOLATE 21.2 NG/ML; RHEUMATOID FACTOR QUANT < 10.0 IU/ML (<15.0); VITAMIN B12 LEVEL > 2000 PG/ML
[2018-08-15 15:27] LABS: HEMOGLOBIN A1c 5.4 %
[2018-08-19 15:22] LABS: ANTINUCLEAR ANTIBODIES DIRECT Negative (Negative); VITAMIN B1 LEVEL WHOLE BLOOD 33.6 nmol/L (66.5-200.0); VITAMIN B6,PYRIDOXAL PHOSPHATE 21.1 ug/L (2.0-32.8); VITAMIN E(ALPHA TOCOPHEROL) 16.9 mg/L (9.0-29.0); VITAMIN E(GAMMA TOCOPHEROL) 0.9 mg/L (0.5-4.9)
[2018-08-20 08:13] LABS: DRVV SCREEN 37.4 SEC
[2018-08-20 08:17] LABS: PTT LUPUS TYPE ANTICOAG SCREEN 0.9 (0-1.2)
[2018-08-20 11:08] LABS: ALBUMIN 4.16 GM/DL (3.29-5.55); ALBUMIN % 59.4 % (55.8-66.1); ALPHA-1-GLOBULIN % 4.8 % (2.9-4.9); ALPHA-1-GLOBULINS 0.34 GM/DL (0.17-0.41); ALPHA-2-GLOBULINS 0.74 GM/DL (0.42-0.99); ALPHA-2-GLOBULINS % 10.5 % (7.1-11.8); BETA-1-GLOBULINS 0.46 GM/DL (0.28-0.60); BETA-1-GLOBULINS % 6.5 % (4.7-7.2); BETA-2-GLOBULINS 0.43 GM/DL (0.19-0.55); BETA-2-GLOBULINS % 6.1 % (3.2-6.5); GAMMA GLOBULIN % 12.7 % (11.1-18.8); GAMMA GLOBULINS 0.89 GM/DL (0.65-1.58)
== END ==
LOC: M LABNEURO 10:27
PROVIDERS: ATTEND Psychiatry & Neurology Neurology
DX: G62.9 Polyneuropathy, unspecified (principal); Z79.82 Long term (current) use of aspirin; Z79.899 Other long term (current) drug therapy

== ENCOUNTER → 2018-09-26 | Outpatient (CLI) | payer MEDICARE ==
[~2018-09-26] MED LIST changes: +CYAN500T8 PO; -VITA500T3 PO
[2018-09-26 13:50] LABS: BASO % 0.3 % (0.0-1.0); EOS # 0.1 10^3/uL (0.0-0.50); EOS % 2.7 % (0.0-3.0); HEMATOCRIT 32.2 % (36.0-47.0); HEMOGLOBIN 10.1 g/dl (12.0-15.5); LYMPH # 0.9 10^3/uL (1.5-4.5); MEAN CORPUSCULAR HEMOGLOBIN 35.6 pg (27.0-33.0); MEAN CORPUSCULAR HGB CONC 31.4 g/dl (32.0-36.5); MEAN CORPUSCULAR VOLUME 113.4 fl (80.0-96.0); MONO # 0.4 10^3/uL (0.0-0.8); MONO % 12.9 % (0.0-5.0); NEUTROPHILS # 1.5 10^3/uL (1.8-7.7); NEUTROPHILS % 52.1 % (36.0-66.0); PLATELET COUNT, AUTOMATED 297 10^3/uL (150-450); RED BLOOD COUNT 2.84 10^6/uL (4.00-5.40); WHITE BLOOD COUNT 2.9 10^3/uL (4.0-10.0)
[2018-09-26 13:59] LABS: INR 1.02; PROTHROMBIN TIME 13.1 SECONDS (11.8-14.0)
[2018-09-26 14:00] LABS: PARTIAL THROMBOPLASTIN TIME 29.8 SECONDS (25.0-38.4)
[2018-09-26 14:50] LABS: ALBUMIN 3.6 GM/DL (3.2-5.2); ALT/SGPT 21 U/L (12-78); BILIRUBIN,TOTAL 0.2 MG/DL (0.2-1.0); BLOOD UREA NITROGEN 10 MG/DL (7-18); CALCIUM LEVEL 8.5 MG/DL (8.8-10.2); CARBON DIOXIDE LEVEL 29 MEQ/L (21-32); CHLORIDE LEVEL 107 MEQ/L (98-107); CREATININE FOR GFR 0.44 MG/DL (0.55-1.30); GLOMERULAR FILTRATION RATE > 60.0 (>45); GLUCOSE, FASTING 83 MG/DL (70-100); POTASSIUM SERUM 4.8 MEQ/L (3.5-5.1); SODIUM LEVEL 143 MEQ/L (136-145)
[2018-09-27 11:41] LABS: CA 125 5.5 U/ML (<30.2)
[2018-09-27 14:09] LABS: HE4 52.1 pmol/L (0.0-96.5)
== END ==
LOC: M SMT 09:30
PROVIDERS: ATTEND Obstetrics & Gynecology Gynecologic Oncology
DX: C56.2 Malignant neoplasm of left ovary (principal)

== ENCOUNTER → 2018-10-28 | Outpatient (CLI) | payer MEDICARE ==
[~2018-10-28] MED LIST changes: +DOXY100C PO; +FLON1SPR NARES; +FLUO0.0119 OTIC; +MULT1CAP3 PO
--- NOTE | 2018-10-28 10:48 | REP ---
MUGA SCAN: Prior to chemotherapy due to ovarian carcinoma. After the intravenous administration of 27.5 millicuries technetium 99m UltraTag labeled RBCs, a MUGA scan was obtained. The estimated ejection fraction calculation is 79.9%. This is normal. No abnormal ventricular wall motility was noted. IMPRESSION: Normal exam. Electronically Signed by Devendra Cullen DO 10/28/2018 12:27 P
== END ==
LOC: M RAD 07:47
PROVIDERS: ATTEND Internal Medicine
DX: C56.9 Malignant neoplasm of unspecified ovary (principal)
CPT/HCPCS: 78472; A9560

== ENCOUNTER 2018-11-11 14:34 | Emergency (ER) | payer MEDICARE ==
[~2018-11-11] VITALS: Ht 162.6 cm; Wt 66.8 kg
[2018-11-11 15:39] LABS: HEMATOCRIT 35.2 % (36.0-47.0); HEMOGLOBIN 11.2 g/dl (12.0-15.5); MEAN CORPUSCULAR HEMOGLOBIN 33.6 pg (27.0-33.0); MEAN CORPUSCULAR HGB CONC 31.8 g/dl (32.0-36.5); MEAN CORPUSCULAR VOLUME 105.7 fl (80.0-96.0); PLATELET COUNT, AUTOMATED 132 10^3/uL (150-450); RED BLOOD COUNT 3.33 10^6/uL (4.00-5.40); WHITE BLOOD COUNT 6.8 10^3/uL (4.0-10.0)
[2018-11-11 16:02] LABS: ALBUMIN 3.6 GM/DL (3.2-5.2); ALT/SGPT 37 U/L (12-78); BILIRUBIN,DIRECT < 0.1 MG/DL (0.0-0.2); BILIRUBIN,TOTAL 0.2 MG/DL (0.2-1.0); BLOOD UREA NITROGEN 12 MG/DL (7-18); CALCIUM LEVEL 9.2 MG/DL (8.8-10.2); CARBON DIOXIDE LEVEL 33 MEQ/L (21-32); CHLORIDE LEVEL 102 MEQ/L (98-107); CREATININE FOR GFR 0.49 MG/DL (0.55-1.30); GLOMERULAR FILTRATION RATE > 60.0 (>45); GLUCOSE, FASTING 126 MG/DL (70-100); LIPASE 95 U/L (73-393); SODIUM LEVEL 140 MEQ/L (136-145); TOTAL PROTEIN 7.3 GM/DL (6.4-8.2)
[2018-11-11 16:26] LABS: EOSINOPHILS 6 % (0-3); LYMPHOCYTES 20 % (16-44); METAMYELOCYTES 1 % (0-0); MONOCYTES 4 % (0-5); NEUTROPHILS 66 % (28-66); PLATELET ESTIMATE DECREASED (NORMAL)
[2018-11-11] MEDS ORDERED: NS 1,000 ML IV ONE (17:00)
[2018-11-11] MEDS ORDERED: ISOVUE-370 76% 100ML VIAL (Q9967) As Ordered ONE (17:11)
[2018-11-11 17:37] LABS: CK-MB VALUE MASS < 1.0 NG/ML (<3.6); CPK CREATINE PHOSPHOKINASE 31 U/L (26-192); MAGNESIUM LEVEL 1.7 MG/DL (1.8-2.4); MB/CK RELATIVE INDEX 3.23 (< OR =4); TROPONIN I < 0.02 NG/ML (< 0.10)
[2018-11-11 19:00] VITALS: BP 137/67
--- NOTE | 2018-11-11 19:07 | REPVR ---
EXAM: CT Angiography Chest With Contrast EXAM DATE/TIME: 11/11/2018 5:59 PM CLINICAL HISTORY: 68 years old, female; Chest pain; Additional info: Adbl pain - stage 4 ov CA, sp resection TECHNIQUE: Imaging protocol: Computed tomographic angiography images of the chest with intravenous contrast using CT angiography protocol. 3D rendering: MIP reconstructed images were created and reviewed. Radiation optimization: All CT scans at this facility use at least one of these dose optimization techniques: automated exposure control; mA and/or kV adjustment per patient size (includes targeted exams where dose is matched to clinical indication); or iterative reconstruction. Contrast material: ISOVUE 370; Contrast volume: 100 ml; Contrast route: IV; COMPARISON: CT ANGIO CHEST 01/16/2018 12:31 PM FINDINGS: Pulmonary arteries: There is opacification of the pulmonary arteries with no evidence of pulmonary embolus. Aorta: There is opacification of the aorta which appears intact. 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 Lungs: The lungs appear clear. Pleural space: There is no evidence of pneumothorax. There is no evidence of pleural effusion. Heart: The heart is top normal in size. There is no pericardial effusion. Lymph nodes: Prominent lymphoid tissue in the right suprahilar region unchanged since the CT of December. Bones/joints: There is no evidence of bony abnormality. Soft tissues: Unremarkable. IMPRESSION: No evidence of pulmonary embolus. Electronically signed by: Shree Dutta On 11/11/2018 19:07:07 PM
--- NOTE | 2018-11-11 19:29 | REPVR ---
EXAM: CT Abdomen and Pelvis With Contrast EXAM DATE/TIME: 11/11/2018 5:59 PM CLINICAL HISTORY: 68 years old, female; Abdominal pain; Generalized; Additional info: Adbl pain - stage 4 ov CA, sp resection TECHNIQUE: Imaging protocol: Computed tomography images of the abdomen and pelvis with intravenous contrast. Radiation optimization: All CT scans at this facility use at least one of these dose optimization techniques: automated exposure control; mA and/or kV adjustment per patient size (includes targeted exams where dose is matched to clinical indication); or iterative reconstruction. Contrast material: ISOVUE 370; Contrast volume: 100 ml; Contrast route: IV; COMPARISON: CT ABD PELVIS W/O FOL BY WIT 04/23/2018 4:22 PM FINDINGS: Liver: Normal appearing liver. In April there are large low density lesions through the liver which are no longer identified. Gallbladder and bile ducts: Normal gallbladder. Normal common bile duct. Pancreas: Normal pancreas. Spleen: Normal spleen. Adrenals: Normal adrenal glands. Kidneys and ureters: There is opacification of the kidneys. There is no evidence of obstruction of the right or left ureter. Stomach and bowel: The cecum is in the right pelvis. There are surgical clips along the margin of the cecum. Appendix: No evidence of appendicitis. Intraperitoneal space: There is no evidence of pneumoperitoneum. There is no evidence of free fluid in the abdomen or the pelvis. Vasculature: There is opacification of the SMA. There is opacification of the aorta. Lymph nodes: Normal. No enlarged lymph nodes. Bladder: Small amount of urine in the urinary bladder. Reproductive: Patient is status post hysterectomy. Bones/joints: No acute fracture. No dislocation. Soft tissues: Unremarkable. Other findings: There is opacification of the SMV. IMPRESSION: 1. Large low density lesions in the liver seen in April are no longer identified. 2. No evidence of pelvic mass. COMMENT: Consistent with the [employer]'s Incidental Findings Committee Report (J Am Bonnie Radiol 2010): Unless the patient's specific circumstances suggest otherwise, any liver lesion 0.5 cm or less, any cystic kidney lesion less than 1.0 cm, and/or any adrenal lesion 1.0 cm or less not otherwise characterized in this report as possessing suspicious or indeterminate imaging features is/are highly likely to be benign and do not require follow-up imaging or biopsy. Electronically signed by: Shree uDtta On 11/11/2018 19:29:36 PM
--- NOTE | 2018-11-11 20:53 | ECGEPIP ---
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
[2018-11-27] MEDS ORDERED: L-GL500T5 PO (10:40)
[2018-11-27] MEDS ORDERED: DEXA4TA PO (11:29)
[2018-11-27] MEDS ORDERED: GABA-1171 PO (11:35)
== END 2018-11-11 20:18 | disposition home or self-care (01) ==
LOC: M ED 14:34
DX: R10.9 Unspecified abdominal pain (principal); I48.91 Unspecified atrial fibrillation; C56.9 Malignant neoplasm of unspecified ovary; K21.9 Gastro-esophageal reflux disease without esophagitis; Z79.82 Long term (current) use of aspirin; Z79.899 Other long term (current) drug therapy; Z91.011 Allergy to milk products; Z88.2 Allergy status to sulfonamides; Z91.018 Allergy to other foods
CPT/HCPCS: 71275; 74177; 80048; 80076; 81001; 82550; 82553; 83690; 83735; 84484; 85025; 93005; 93041; 99284; Q9967

== ENCOUNTER → 2018-12-19 | Outpatient (REF) | payer MEDICARE ==
[~2018-12-19] MED LIST changes: +DEXA4TA PO; +GABA-1171 PO; +L-GL500T5 PO
[2018-12-19 10:53] LABS: APPEARANCE, URINE HAZY (CLEAR); BACTERIA, URINE AUTO NEGATIVE (NEGATIVE); BILIRUBIN, URINE AUTO NEGATIVE (NEGATIVE); BLOOD, URINE BLOOD 1+ (NEGATIVE); COLOR, URINE YELLOW (YELLOW); GLUCOSE, URINE (UA) AUTO NEGATIVE (NEGATIVE); KETONE, URINE AUTO NEGATIVE (NEGATIVE); LEUKOCYTE ESTERASE, URINE AUTO TRACE (NEGATIVE); MUCUS, URINE SMALL (NEGATIVE); NITRITE, URINE AUTO NEGATIVE (NEGATIVE); PROTEIN, URINE AUTO NEGATIVE (NEGATIVE); RBC, URINE AUTO 3 /HPF (0-3); SPECIFIC GRAVITY URINE AUTO 1.008 (1.002-1.035); SQUAMOUS EPITHELIAL CELL UR AU 0 /HPF (0-6); UROBILINOGEN, URINE AUTO 0.2 mg/dL (0.0-2.0); WBC, URINE AUTO 2 /HPF (0-3)
[2018-12-19 11:30] LABS: ALBUMIN 3.7 GM/DL (3.2-5.2); ALT/SGPT 21 U/L (12-78); BILIRUBIN,TOTAL 0.3 MG/DL (0.2-1.0); BLOOD UREA NITROGEN 12 MG/DL (7-18); CALCIUM LEVEL 9.1 MG/DL (8.8-10.2); CARBON DIOXIDE LEVEL 33 MEQ/L (21-32); CHLORIDE LEVEL 105 MEQ/L (98-107); CREATININE FOR GFR 0.53 MG/DL (0.55-1.30); GLOMERULAR FILTRATION RATE > 60.0 (>45); GLUCOSE, FASTING 79 MG/DL (70-100); MAGNESIUM LEVEL 1.9 MG/DL (1.8-2.4); POTASSIUM SERUM 4.2 MEQ/L (3.5-5.1); SODIUM LEVEL 143 MEQ/L (136-145); TOTAL PROTEIN 7.7 GM/DL (6.4-8.2)
[2018-12-19 11:33] LABS: TOTAL 25(OH) VITAMIN D 49.7 NG/ML (30.0-100.0)
== END ==
LOC: M SFHCPLAZ 08:58
PROVIDERS: ATTEND Internal Medicine
DX: I48.0 Paroxysmal atrial fibrillation (principal); K21.9 Gastro-esophageal reflux disease without esophagitis; R31.9 Hematuria, unspecified; M81.0 Age-related osteoporosis without current pathological fracture

== ENCOUNTER → 2019-01-21 | Outpatient (CLI) | payer MEDICARE ==
[~2019-01-21] MED LIST changes: +AVASINJ IV; +CALCCAP4 PO
--- NOTE | 2019-01-21 17:43 | REP ---
PET/CT: History: Restaging ovarian carcinoma. Status post neoadjuvant chemotherapy followed by debulking surgery and adjuvant chemotherapy. Comparisons: Comparison PET-CT study is from Aug 07 1018. There is a May 22, 2018 prior PET-CT as well. TECHNIQUE: 56 minutes following the intravenous injection of a 8.45 mCi dose of F-18 FDG, three-dimensional PET scintigraphy is acquired from the skull base to the proximal thighs. Triplanar noncontrast CT scanning is acquired through the same anatomic range for attenuation correction, and image registration with scan parameters optimized to minimize radiation exposure to the patient. PET scintigraphy and CT datasets were fused and displayed on a workstation with multiplanar and projection display capability. PET/CT Findings: There is a 7 mm non hypermetabolic nodule in the left lower lobe as previously seen. Maximum standard uptake value in this nodule is 1.83. No other abnormal pulmonary parenchymal hypermetabolic uptake is seen. No other significant pulmonary nodule is appreciated. No hilar or mediastinal hypermetabolic uptake is seen. Head and neck soft tissues are unremarkable. There is no abnormal hypermetabolic uptake in the liver. The previously noted hypermetabolic uptake in the retroperitoneum is not apparent. No abnormal pelvic hypermetabolic uptake is seen. The previously noted cystic lesion has been removed. There is no abnormal skeletal hypermetabolic uptake visible on today's scan. The skeletal metastatic foci in the hepatic metastatic foci observed on the PET CT study from May 22, 2018 have all resolved. Impression: No abnormal hypermetabolic uptake. Electronically Signed by Bebo Peck MD 01/21/2019 07:52 P
== END ==
LOC: M PLARAD 07:31
PROVIDERS: ATTEND Internal Medicine Medical Oncology
DX: C56.2 Malignant neoplasm of left ovary (principal)
CPT/HCPCS: 78815; A9552

== ENCOUNTER 2019-01-23 13:17 | Emergency (ER) | payer MEDICARE ==
[~2019-01-23] VITALS: Ht 165.1 cm; Wt 68.6 kg
[~2019-01-23 13:17] MED LIST changes: -AVASINJ IV; -CALCCAP4 PO
[2019-01-23] MEDS ORDERED: CALCCAP4 PO (13:52)
[2019-01-23] MEDS ORDERED: AVASINJ IV (13:54)
[2019-01-23 15:17] LABS: BASO % 0.5 % (0.0-1.0); EOS # 0.1 10^3/uL (0.0-0.5); EOS % 1.9 % (0.0-3.0); HEMATOCRIT 35.5 % (36.0-47.0); LYMPH # 1.4 10^3/uL (1.5-5.0); LYMPH % 33.1 % (24.0-44.0); MEAN CORPUSCULAR HEMOGLOBIN 31.5 pg (27.0-33.0); MEAN CORPUSCULAR VOLUME 101.7 fl (80.0-96.0); MONO # 0.5 10^3/uL (0.0-0.8); MONO % 11.8 % (0.0-5.0); NEUTROPHILS # 2.2 10^3/uL (1.5-8.5); NEUTROPHILS % 52.5 % (36.0-66.0); PLATELET COUNT, AUTOMATED 255 10^3/uL (150-450); RED BLOOD COUNT 3.49 10^6/uL (4.00-5.40); WHITE BLOOD COUNT 4.1 10^3/uL (4.0-10.0)
[2019-01-23 15:50] LABS: ALBUMIN 3.6 GM/DL (3.2-5.2); ALT/SGPT 21 U/L (12-78); AMYLASE 48 U/L (25-115); BILIRUBIN,DIRECT < 0.1 MG/DL (0.0-0.2); BILIRUBIN,TOTAL 0.3 MG/DL (0.2-1.0); BLOOD UREA NITROGEN 16 MG/DL (7-18); CALCIUM LEVEL 8.6 MG/DL (8.8-10.2); CARBON DIOXIDE LEVEL 32 MEQ/L (21-32); CHLORIDE LEVEL 106 MEQ/L (98-107); CREATININE FOR GFR 0.49 MG/DL (0.55-1.30); GLOMERULAR FILTRATION RATE > 60.0 (>45); GLUCOSE, FASTING 81 MG/DL (70-100); LIPASE 86 U/L (73-393); POTASSIUM SERUM 4.1 MEQ/L (3.5-5.1); SODIUM LEVEL 140 MEQ/L (136-145); TOTAL PROTEIN 7.1 GM/DL (6.4-8.2)
[2019-01-23 15:52] LABS: CK-MB VALUE MASS < 1.0 NG/ML (<3.6); CPK CREATINE PHOSPHOKINASE 48 U/L (26-192); MB/CK RELATIVE INDEX 2.08 (< OR =4); TROPONIN I < 0.02 NG/ML (< 0.10)
[2019-01-23] MEDS ORDERED: ISOVUE-370 76% 100ML VIAL (Q9967) As Ordered ONE (15:56)
--- NOTE | 2019-01-23 16:51 | REP ---
CT of the abdomen and pelvis with IV contrast, without bowel contrast: Comparisons are 10/22/2018 and 04/23/2018. The patient complains of left sided abdominal pain. The patient has a history of stage IV ovarian carcinoma. The visualized lung yeager are unremarkable except for curvilinear scarring in the left lower lobe. The hepatic parenchyma is homogeneous except for a small focal hypodensity in the left lobe medial segment measuring 12 mm. The multiple hypodense hepatic lesions identified into 08/05/2018 have resolved. There is no ascites. The gallbladder, pancreas, spleen, adrenals and kidneys are unremarkable. There is no as. There are no renal calculi. The abdominal aorta is unremarkable. The bulky retroperitoneal adenopathy identified on 04/23/2018 has There is no mesenteric adenopathy. There are no peritoneal implants. There is a diverticulum posterior margin of the ascending colon containing inspissated material, unchanged from the prior studies. There is no evidence of acute diverticulitis. There is no bowel distension or obstruction. Pelvis: There is a hysterectomy. There are no adnexal masses. There is no pelvic adenopathy or ascites. The bladder is unremarkable. There are no lytic, blastic or destructive skeletal changes. There are intervertebral disc calcifications in the lumbar spine compatible with multilevel degenerative disc disease. Impression: The hepatic metastases and bulky periaortic adenopathy identified on 04/23/2018 have resolved. There is a persisting hypodensity in the liver as described. There is a ascending colon diverticulum without evidence of diverticulitis. There is no ascites, adenopathy or mesenteric implants. There is degenerative disc disease in the lumbar spine. No hydronephrosis. Electronically Signed by Johnny Owen MD 01/23/2019 04:43 P
[2019-01-23 17:45] VITALS: BP 175/84
== END 2019-01-23 18:12 | disposition home or self-care (01) ==
LOC: M ED 13:17
DX: R10.9 Unspecified abdominal pain (principal); I48.91 Unspecified atrial fibrillation; K21.9 Gastro-esophageal reflux disease without esophagitis; R91.1 Solitary pulmonary nodule; Z85.43 Personal history of malignant neoplasm of ovary; Z90.79 Acquired absence of other genital organ(s); Z88.2 Allergy status to sulfonamides; Z91.011 Allergy to milk products; Z91.018 Allergy to other foods; Z79.82 Long term (current) use of aspirin
CPT/HCPCS: 74177; 80048; 80076; 81001; 82150; 82550; 82553; 83605; 83690; 84484; 85025; 93041; 99285; Q9967

== ENCOUNTER → 2019-01-27 | Outpatient (REF) | payer MEDICARE ==
[~2019-01-27] MED LIST changes: +AVASINJ IV; +CALCCAP4 PO
== END ==
LOC: M SFHCPLAZ 13:48
PROVIDERS: ATTEND Internal Medicine
DX: C56.9 Malignant neoplasm of unspecified ovary (principal)

== ENCOUNTER 2019-02-14 09:35 | Emergency (ER) | payer MEDICARE ==
[~2019-02-14] VITALS: Ht 162.6 cm; Wt 68.8 kg
[2019-02-14] MEDS ORDERED: NEXI40CA (09:44)
[2019-02-14] MEDS ORDERED: ESOM40CA35 (09:44)
[2019-02-14] MEDS ORDERED: MONT10TA2 (09:44)
--- NOTE | 2019-02-14 10:42 | REP ---
Clinical: Trauma. Fall. . Comparison: None . Findings: The ventricles, sulci, and cisterns are normal in position and appearance. Garcia-white differentiation is maintained. No acute intracranial hemorrhage, mass/mass effect, pathology or trauma/injury. No evidence for acute infarction. No extra-axial fluid collection. Calvarium is intact. Paranasal sinuses and mastoid air cells are clear. Impression: Normal noncontrast head CT. No evidence for acute intracranial pathology or trauma/injury. Electronically Signed by Hunter Puentes MD 02/14/2019 10:34 A
--- NOTE | 2019-02-14 10:44 | REP ---
Clinical: Trauma. Fall. . Technique: Axial noncontrast images from the skull base to the thoracic inlet with coronal and sagittal re-formations Findings: Normal alignment and lordosis is maintained. Focal moderate degenerative disc osteophyte complex at C5-6. Cervical vertebral bodies including transverse processes and spinous processes are intact and there is no evidence for acute fracture / compression injury or subluxation. Spinal canal is patent. Posterior elements are intact. Paravertebral soft tissues are normal. Impression: Focal degenerative changes at C5-6. No evidence for acute pathology or trauma/injury. Electronically Signed by Hunter Puentes MD 02/14/2019 10:35 A
[2019-02-14] MEDS ORDERED: ACETAMINOPHEN TAB 650MG DOSE (2X325MG) PO ONE (10:45)
--- NOTE | 2019-02-14 11:14 | REP ---
Clinical: Trauma. Fall. Technique: AP, lateral, bilateral oblique views of the left elbow. Findings: Age-related changes are appreciated. No obvious acute fracture or dislocation. Impression: No obvious acute fracture or dislocation. If the patient remains symptomatic consider reevaluation in 3-5 days. Electronically Signed by Hunter Puentes MD 02/14/2019 11:06 A
[2019-02-14 11:50] VITALS: BP 181/82
== END 2019-02-14 11:51 | disposition home or self-care (01) ==
LOC: M ED 09:35
DX: S06.0X0A Concussion without loss of consciousness, initial encounter (principal); S50.02XA Contusion of left elbow, initial encounter; W00.0XXA Fall on same level due to ice and snow, initial encounter; Y92.014 Private driveway to single-family (private) house as the place of occurrence of the external cause; C56.2 Malignant neoplasm of left ovary; M50.322 Other cervical disc degeneration at C5-C6 level; I48.91 Unspecified atrial fibrillation; K21.9 Gastro-esophageal reflux disease without esophagitis; Z88.2 Allergy status to sulfonamides; Z91.011 Allergy to milk products; Z91.018 Allergy to other foods; Z79.2 Long term (current) use of antibiotics; Z79.82 Long term (current) use of aspirin; Z79.899 Other long term (current) drug therapy

== ENCOUNTER → 2019-03-21 | Outpatient (CLI) | payer MEDICARE ==
[~2019-03-21] MED LIST changes: +ESOM40CA35; +MONT10TA2; +NEXI40CA
--- NOTE | 2019-03-21 11:21 | REP ---
Duplex carotid sonography: History: Pulsating sensation in the right side of the neck after a fall. Question aneurysm. Sonographic findings: Antegrade flow was observed in both vertebral arteries. Right carotid: The right common carotid artery is unremarkable except for mild diffuse intimal thickening. No significant plaquing or narrowing is seen. Color flow and spectral Doppler interrogation are unremarkable on the right. Velocity chart: Right carotid: PSV EDV Right CCA 107.0 cm/s Right ICA 73.0 18.0 Right ECA 78.0 Right ICA/CCA ratio normal 0.7. Impression: Less than 50% category narrowing in the right ICA. No aneurysm seen. Left carotid: The left common carotid artery shows mild diffuse intimal thickening as well. No significant plaquing is seen in the left carotid bifurcation or proximal ICA on two-dimensional scanning. Color flow and spectral Doppler interrogation are unremarkable. Mild soft plaquing is seen. Velocity chart: Left carotid: PSV EDV Left CCA 119.0 cm/s Left ICA 72.0 18.0 Left ECA 76.0 Left ICA/CCA ratio normal 0.6. Impression: Less than 50% category narrowing in the left ICA by Doppler velocity criteria. Electronically Signed by Bebo Peck MD 03/21/2019 03:52 P
== END ==
LOC: M RAD 09:16
PROVIDERS: ATTEND Internal Medicine
DX: R22.1 Localized swelling, mass and lump, neck (principal)

== ENCOUNTER → 2019-04-10 | Outpatient (CLI) | payer MEDICARE ==
[~2019-04-10] MED LIST changes: +PROHANCE 279.3MG/ML 15ML VIAL (A9576) As Ordered ONE
--- NOTE | 2019-04-10 10:14 | REP ---
MRI brain posterior fossa and IACs without and with IV contrast: History: Hearing loss left ear. Technique: Axial coronal and sagittal imaging planes utilized were utilized. T1 and T2 weighted sequences include spin-echo, turbo spin echo, FLAIR, diffusion weighted scans, and thin section posterior fossa pre and postcontrast imaging. The gadolinium enhancement dose is 14 ml of intravenous ProHance. Comparison CT study of the brain February 14, 2019. MRI findings: Craniocervical junction and upper cervical cord are normal in appearance. Bony calvarium is intact. There is no MR evidence of significant paranasal sinus disease. Mastoids appear clear. No intraorbital abnormality is seen. Lateral, third, fourth ventricles are normal in size and position. There are fairly extensive periventricular white matter T2 hyperintensities consistent with small vessel changes in the supratentorial brain bilaterally. No intracranial mass lesion is seen. No infarct is observed. Diffusion weighted scans are unremarkable. Thin section T2-weighted scans through the posterior fossa demonstrate normal seventh and eighth nerves in symmetric internal auditory canals. Cochlear and vestibular apparatus appear intact. There is no evidence of CP angle cistern mass on either side. Postcontrast images show no evidence of intracanalicular or extra canalicular abnormal contrast enhancement in either IACs. Postcontrast images show enhancement in normal vascular structures. No abnormal gadolinium enhancement is appreciated. Impression: Negative internal auditory canal MRI study. Small vessel changes are noted. Otherwise negative brain MRI. Electronically Signed by Bebo Peck MD 04/10/2019 11:18 A
== END ==
LOC: M RAD 08:13
PROVIDERS: ATTEND Otolaryngology
DX: H91.92 Unspecified hearing loss, left ear (principal)
CPT/HCPCS: 70553; A9576

== ENCOUNTER → 2019-05-27 | Outpatient (CLI) | payer MEDICARE ==
[~2019-05-27] MED LIST changes: +DICL1GEL3 TOP; -MONT10TA2; +MONT10TA4; -PROHANCE 279.3MG/ML 15ML VIAL (A9576) As Ordered ONE
--- NOTE | 2019-05-27 19:11 | REPVR ---
PROCEDURE INFORMATION: Exam: MR Cervical Spine Without Contrast Exam date and time: 05/27/2019 5:57 PM Age: 68 years old Clinical indication: Neck pain; Additional info: Cervical ddd ? hnp stenosis TECHNIQUE: Imaging protocol: Multiplanar magnetic resonance images of the cervical spine without contrast. COMPARISON: CT Spine,cervical w/o contrast 02/14/2019 10:18 AM FINDINGS: Vertebrae: There is no fracture. Vertebral alignment is normal. There is no fracture. Vertebral alignment is normal. Stir images demonstrate no evidence of marrow infiltrating lesion or injury. Spinal cord: The cervical spinal cord and cervical medullary junction are normal. C2-C3: No significant disc disease. No significant spinal stenosis. C3-C4: No significant disc disease. No significant spinal stenosis. C4-C5: No significant disc disease. No significant spinal stenosis. C5-C6: Spondylosis and disc space narrowing with a small posterior osteophyte and disc bulge partially effacing the ventral subarachnoid space. Mild bilateral foraminal stenosis. No central stenosis. C6-C7: No significant disc disease. No significant spinal stenosis. C7-T1: No significant disc disease. No significant spinal stenosis. Vertebral arteries: Expected flow voids in the vertebral arteries. Soft tissues: No evidence of paraspinous or intraspinal mass, hemorrhage or fluid collection. IMPRESSION: 1. Mild degenerative changes at C5-C6. Small posterior osteophyte and disc bulge. No central stenosis. Mild bilateral foraminal stenosis. 2. No acute findings. Electronically signed by: Hector Martinez On 05/27/2019 19:10:52 PM
== END ==
LOC: M RAD 16:59
PROVIDERS: ATTEND Physician Assistant
DX: M50.322 Other cervical disc degeneration at C5-C6 level (principal); M25.78 Osteophyte, vertebrae

== ENCOUNTER 2019-10-28 10:20 | Emergency (ER) | payer MEDICARE ==
[~2019-10-28 10:20] MED LIST changes: +CLAR10CA3 PO; -CLIN1GEL22; +CLIN1GEL22 TOP; +HYDR12.55 PO; -MONT10TA4; +MONT10TA4 PO; -NEXI40CA; +NEXI40CA PO; +PEPC10TA6 PO
[2019-10-28] MEDS ORDERED: ISOVUE-370 76% 100ML VIAL As Ordered ONE (13:23)
--- NOTE | 2019-12-01 15:29 | ECGEPIP ---
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
--- NOTE | 2019-12-01 15:31 | ECGEPIP ---
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
[2019-12-09] MEDS ORDERED: KLOR10TA76 PO (11:16)
--- NOTE | 2019-12-10 10:45 | REP ---
CHEST X-RAY: HISTORY: Chest pain. COMPARISON: Portable chest x-ray from 06/10/18. FINDINGS: An Infusaport catheter is noted in place on the right. Monitoring electrodes are seen. The lungs are somewhat hyperinflated, as before but clear. Pleural angles are sharp. The heart is not enlarged. Pulmonary vasculature is not increased. No acute bony abnormality. IMPRESSION: No active disease. MTDD
[2019-12-13 07:49] LABS: HEMATOCRIT 41.7 % (36.0-47.0); HEMOGLOBIN 13.3 g/dl (12.0-15.5)
[2019-12-13 07:53] LABS: INR 0.98; PARTIAL THROMBOPLASTIN TIME 28.9 SECONDS (24.2-38.5); PROTHROMBIN TIME 13.2 SECONDS (12.5-14.3)
[2019-12-29] MEDS ORDERED: SPIR-10 PO (13:52)
[2019-12-29] MEDS ORDERED: NASA1SPR NARES (13:54)
== END 2019-10-28 16:30 | disposition home or self-care (01) ==
LOC: M ED 10:20
DX: R07.89 Other chest pain (principal); R91.8 Other nonspecific abnormal finding of lung field; I48.91 Unspecified atrial fibrillation; I10 Essential (primary) hypertension; C56.9 Malignant neoplasm of unspecified ovary; K21.9 Gastro-esophageal reflux disease without esophagitis; Z88.2 Allergy status to sulfonamides; Z79.899 Other long term (current) drug therapy
CPT/HCPCS: 36415; 70498; 71045; 71275; 80048; 80076; 82550; 82553; 84484; 85014; 85018; 85610; 85730; 93005; 93970; 99284; Q9967

== ENCOUNTER → 2019-12-19 | Outpatient (CLI) | payer MEDICARE ==
[~2019-12-19] MED LIST changes: +GASTROGRAFIN SOLUTION 30ML (Q9963) As Ordered ONE; +ISOVUE-370 76% 100ML VIAL As Ordered ONE; +KLOR10TA76 PO; +NASA1SPR NARES; +SPIR-10 PO
--- NOTE | 2019-12-29 14:48 | REP ---
CT CHEST WITH INTRAVENOUS (IV) CONTRAST HISTORY: Ovarian carcinoma. COMPARISON: 10/28/2019. CT CONTRAST DOSE: 100 mL of intravenous Isovue-370. CT FINDINGS: There are multiple stable subcentimeter pulmonary nodules bilaterally unchanged from 10/28/2019 and unchanged from 01/16/[address] studies. The largest of these is a 9-mm nodule in the peribronchial vascular region of the left lower lobe posteriorly and medially. This is also unchanged from the 2018 prior study. No new pulmonary nodule is appreciated. No new infiltrate is seen. No pleural or pericardial effusion is seen. No hilar or mediastinal mass or adenopathy is observed. No adrenal lesion is seen. There is a right-sided Infusaport catheter in the superior vena cava via the right subclavian vein. Mediastinal vascular structures are unremarkable. No bony abnormality is seen. IMPRESSION: Multiple stable subcentimeter pulmonary nodules unchanged from 01/16/2018. No acute disease. MTDD
--- NOTE | 2019-12-29 14:49 | REP ---
CT ABDOMEN AND PELVIS WITH INTRAVENOUS (IV) AND ORAL CONTRAST HISTORY: Ovarian carcinoma. COMPARISON: CT abdomen and pelvis 01/23/2019. CT 04/23/2018. CT CONTRAST DOSE: 100 mL of intravenous Isovue-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 There is minimal diffuse fatty infiltration of the liver. There is no evidence of liver mass lesion. No focal splenic lesion is seen. Neither the liver or spleen appear enlarged. Normal adrenal glands. No abnormality is noted in the pancreas. Gallbladder is unremarkable. The previously noted retroperitoneal adenopathy has resolved and no evidence of recurrent adenopathy is seen. No mesenteric or peritoneal mass or implant is appreciated by CT. Small and large intestinal bowel loops are normal in the upper abdomen and pelvis. Urinary bladder is intact. The uterus is surgically absent. The kidneys enhance symmetrically and appear morphologically intact. No bony destructive lesion is appreciated. IMPRESSION: No evidence of mass or adenopathy. MTDD
== END ==
LOC: M RAD 13:44
PROVIDERS: ATTEND Internal Medicine Medical Oncology
DX: C56.9 Malignant neoplasm of unspecified ovary (principal); R91.8 Other nonspecific abnormal finding of lung field
CPT/HCPCS: 71260; 74177; Q9963; Q9967

== ENCOUNTER → 2019-12-29 | Outpatient (REF) | payer MEDICARE ==
[~2019-12-29] MED LIST changes: -GASTROGRAFIN SOLUTION 30ML (Q9963) As Ordered ONE; -ISOVUE-370 76% 100ML VIAL As Ordered ONE
[2019-12-29 14:03] LABS: BLOOD UREA NITROGEN 17 MG/DL (7-18); CALCIUM LEVEL 9.2 MG/DL (8.8-10.2); CARBON DIOXIDE LEVEL 33 MEQ/L (21-32); CHLORIDE LEVEL 102 MEQ/L (98-107); CHOLESTEROL LEVEL 198 MG/DL (<200); CHOLESTEROL RISK RATIO 2.571 (<5); CREATININE FOR GFR 0.52 MG/DL (0.55-1.30); GLOMERULAR FILTRATION RATE > 60.0 (>39); GLUCOSE, FASTING 84 MG/DL (70-100); HDL CHOLESTEROL 77 MG/DL (>40); LDL CHOLESTEROL 108 MG/DL (<100); MAGNESIUM LEVEL 2.2 MG/DL (1.8-2.4); NON-HDL-C 121 MG/DL; POTASSIUM SERUM 4.1 MEQ/L (3.5-5.1); SODIUM LEVEL 139 MEQ/L (136-145); TRIGLYCERIDES LEVEL 65 MG/DL (<150)
== END ==
LOC: M PLALAB 09:57
PROVIDERS: ATTEND Internal Medicine
DX: I10 Essential (primary) hypertension (principal)

== ENCOUNTER → 2020-01-26 | Outpatient (CLI) | payer MEDICARE ==
--- NOTE | 2020-01-26 15:07 | REP ---
INDICATION: LEFT LEG SWELLING JUST ABOVE ANKLE. COMPARISON: None. TECHNIQUE: Two-dimensional scanning with Doppler. FINDINGS: Scanning in the area of soft tissue swelling just above the ankle in the left lower extremity shows no evidence of mass or abnormal fluid collection. In the area of pain there is a small superficial vein with somewhat echogenic khan. This suggests old phlebitis. This is a superficial vein. IMPRESSION: No abnormal fluid collection or mass lesion seen. <Electronically signed by Terry Peck > 01/26/20 [id number]
== END ==
LOC: M RAD 13:40
PROVIDERS: ATTEND Internal Medicine Medical Oncology
DX: M81.0 Age-related osteoporosis without current pathological fracture (principal)

== ENCOUNTER → 2020-02-24 | Outpatient (CLI) | payer MEDICARE ==
[~2020-02-24] MED LIST changes: +CYAN500T14 PO; -CYAN500T8 PO; -MONT10TA4 PO; +MONT5TAB2 PO
--- NOTE | 2020-02-24 17:09 | DEXAMM ---
INDICATION: OSTEOPOROSIS. COMPARISON: Multiple prior studies most recent of which is from 02/18/2018 and most remote is dated 02/19/1997. TECHNIQUE: Bone density was measured using dual-energy x-ray absorptionmetry (DEXA). FINDINGS: AP SPINE L1-L4 BMD 0.936 g/cm2 Young Adult T-Score -2.1 Age Matched Z-Score -0.4. LT FEMUR, TOTAL BMD 0.683 g/cm2 Young Adult T-Score -2.6 Age Matched Z-Score -1.1. LT NECK BMD 0.676 g/cm2 Young Adult T-Score -2.6 Age Matched Z-Score -0.9. RT FEMUR, TOTAL BMD 0.643 g/cm2 Young Adult T-Score -2.9 Age Matched Z-Score -1.4. RT NECK BMD 0.636 g/cm2 Young Adult T-Score -2.9 Age Matched Z-Score -1.2. IMPRESSION: There is low bone density of the spine. There is osteoporosis of the left hip. There is osteoporosis of the right hip. The density of the spine has decreased 2.7% since the initial exam on February 19, 1997. The density of the spine increased 6.4% since most recent exam on February 18, 2018. The density of the left hip has decreased 0.7% since initial exam on February 19, 1997. The density of the left hip has decreased 0.4% since most recent exam on February 18, 2018. The density of the right hip has decreased 3.5% since the initial exam on February 19, 1997. The density of the right hip has decreased 5.0% since the most recent exam on February 18, 2018. FOLLOW-UP: Recommendation for the next bone density exam: 2 years. <Electronically signed by Terry Peck > 02/24/20 [id number]
== END ==
LOC: M WHC 13:40
PROVIDERS: ATTEND Internal Medicine Medical Oncology
DX: M81.0 Age-related osteoporosis without current pathological fracture (principal); Z78.0 Asymptomatic menopausal state

== ENCOUNTER 2020-03-07 00:25 | Inpatient (IN) | payer MEDICARE ==
[~2020-03-07] VITALS: Ht 162.6 cm; Wt 156.2 kg
[2020-03-07] MEDS ORDERED: FAMO1TAB11 PO (00:36)
[2020-03-07 01:02] LABS: BASO % 0.3 % (0.0-1.0); EOS % 0.3 % (0.0-3.0); HEMATOCRIT 40.9 % (36.0-47.0); LYMPH # 0.9 10^3/uL (1.5-5.0); LYMPH % 7.5 % (24.0-44.0); MEAN CORPUSCULAR HEMOGLOBIN 30.9 pg (27.0-33.0); MEAN CORPUSCULAR HGB CONC 31.8 g/dl (32.0-36.5); MEAN CORPUSCULAR VOLUME 97.1 fl (80.0-96.0); MONO # 0.7 10^3/uL (0.0-0.8); MONO % 5.6 % (0.0-5.0); NEUTROPHILS # 9.9 10^3/uL (1.5-8.5); PLATELET COUNT, AUTOMATED 314 10^3/uL (150-450); RED BLOOD COUNT 4.21 10^6/uL (4.00-5.40); WHITE BLOOD COUNT 11.6 10^3/uL (4.0-10.0)
[2020-03-07] MEDS ORDERED: ONDANSETRON 4MG/2ML VIAL IV ONE (01:15)
[2020-03-07] MEDS: MORPHINE 4 MG/ML 1ML VIAL/SYRINGE (J2270) IV PRN ×2 (01:21→04:05)
[2020-03-07 01:48] LABS: ALBUMIN 4.1 GM/DL (3.2-5.2); ALT/SGPT 24 U/L (12-78); BILIRUBIN,DIRECT 0.1 MG/DL (0.0-0.2); BILIRUBIN,TOTAL 0.3 MG/DL (0.2-1.0); BLOOD UREA NITROGEN 18 MG/DL (7-18); CALCIUM LEVEL 9.5 MG/DL (8.8-10.2); CARBON DIOXIDE LEVEL 30 MEQ/L (21-32); CHLORIDE LEVEL 102 MEQ/L (98-107); CK-MB VALUE MASS < 1.0 NG/ML (<3.6); CPK CREATINE PHOSPHOKINASE 60 U/L (26-192); CREATININE FOR GFR 0.64 MG/DL (0.55-1.30); GLOMERULAR FILTRATION RATE > 60.0 (>39); GLUCOSE, FASTING 125 MG/DL (70-100); LIPASE 121 U/L (73-393); MB/CK RELATIVE INDEX 1.67 (< OR =4); POTASSIUM SERUM 4.1 MEQ/L (3.5-5.1); SODIUM LEVEL 139 MEQ/L (136-145); TOTAL PROTEIN 7.7 GM/DL (6.4-8.2); TROPONIN I < 0.02 NG/ML (< 0.10)
[2020-03-07] MEDS ORDERED: ISOVUE-370 76% 100ML VIAL As Ordered ONE (02:15)
--- NOTE | 2020-03-07 02:57 | REPVR ---
PROCEDURE INFORMATION: Exam: CT Abdomen And Pelvis With Contrast Exam date and time: 03/07/2020 2:28 AM Age: 69 years old Clinical indication: Abdominal pain; Localized; Lower; Additional info: Lower abd pain TECHNIQUE: Imaging protocol: Computed tomography of the abdomen and pelvis with intravenous contrast. Radiation optimization: All CT scans at this facility use at least one of these dose optimization techniques: automated exposure control; mA and/or kV adjustment per patient size (includes targeted exams where dose is matched to clinical indication); or iterative reconstruction. Contrast material: ISOVUE 370; Contrast volume: 100 ml; Contrast route: INTRAVENOUS (IV); COMPARISON: CT ABD PELVIS WITH CONTRAST 12/19/2019 4:06 PM FINDINGS: Lungs: There is atelectasis in both lower lobes. The lungs were not fully imaged. Heart: No cardiomegaly or pericardial effusion. Liver: The attenuation of the liver is more than 40 Hounsfield units lower in attenuation compared to the spleen, which is compatible with fatty liver infiltration. No liver lesion. The contour of the liver is smooth. No hepatomegaly. Gallbladder and bile ducts: No calcified gallstones are noted. No gallbladder wall thickening, pericholecystic fluid, or pericholecystic inflammatory changes are identified. No dilation of the bile ducts is noted. No calcified stones are seen in the common bile duct. Pancreas: Normal. No dilation of the main pancreatic duct is noted. There is no inflammatory fat stranding around the pancreas to suggest acute pancreatitis. Spleen: Normal. No splenomegaly is noted. Adrenal glands: Normal. No adrenal mass is noted. Kidneys and ureters: The kidneys are normal in appearance. No renal lesion is noted. No stones are noted in the kidneys or ureters. There is no hydronephrosis or hydroureter. There are no wedge-shaped areas of low attenuation in the kidneys to suggest pyelonephritis. There is no renal abscess or perinephric fluid collection. Stomach and bowel: There is circumferential thickening of the wall of the gastric antrum with mucosal enhancement and submucosal edema, which is compatible with antral gastritis. There are dilated loops of small bowel in the mid to lower abdominal region measuring up to 3.1 cm in diameter, with air-fluid levels, mesenteric edema, and a transition point from dilated to nondilated small bowel in the anterior aspect of the mid abdominal region approximately 2.5 cm to the left of midline and approximately 5 cm inferior to the umbilicus (image 28 of the coronal series 202), which are findings that can be seen with a small bowel obstruction. No pneumatosis intestinalis is noted. There are no dilated loops of large bowel. There is a mild to moderate amount of formed stool in the colon. There is mild sigmoid diverticulosis without evidence for diverticulitis. Appendix: The appendix is not identified and may have been removed. No dilated blind ending tubular structure, inflammatory fat stranding, or fluid is noted in the expected location of the appendix. Intraperitoneal space: There is a trace amount of mesenteric fluid in the mid abdominal region. No free air. Retroperitoneal space: No fluid collection. No mass. Vasculature: The abdominal aorta is patent, normal in caliber, and there is no dissection. The iliac arteries, common femoral arteries, renal arteries, celiac artery, superior mesenteric artery, and inferior mesenteric artery are patent. There are mild atherosclerotic calcifications. Lymph nodes: No enlarged lymph nodes. Urinary bladder: The partially distended urinary bladder is unremarkable. No stones or masses are seen in the bladder. Reproductive: There has been a hysterectomy. Bones/joints: There is no fracture or dislocation. No suspicious osteolytic or osteoblastic lesion. 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 There are degenerative changes involving the lumbar spine. There is intradiscal calcification at several levels in the lumbar spine. A mild levoscoliosis of the lumbar spine is present. There are degenerative changes of the pubic symphysis. Soft tissues: Unremarkable. No hernia. No soft tissue fluid collection. IMPRESSION: 1. Evidence for a small bowel obstruction with a transition point in the anterior aspect of the mid abdominal region located approximately 2.5 cm to the left of midline and approximately 5 cm inferior to the umbilicus, which may be secondary to an adhesion. 2. Antral gastritis. 3. Mild sigmoid diverticulosis without evidence for diverticulitis. 4. Fatty liver. Electronically signed by: Aris Baker On 03/07/2020 02:57:10 AM
[2020-03-07] MEDS ORDERED: TRET0.1C19 TOP (03:48)
[2020-03-07] MEDS ORDERED: TRIA2LOT TOP (03:48)
[2020-03-07] MEDS ORDERED: CLIN1GEL22 TOP (03:48)
[2020-03-07 04:33] LABS: RSV AMPLIFICATION NEGATIVE (NEGATIVE)
--- NOTE | 2020-03-07 04:39 | HPEPDOC ---
[facility] Medical History & Physical Date of Admission Mar 07, 2020 Date of Service: Mar 07, 2020 Primary Care Physician: Harshad Serna Attending Physician: REINA BURRELL MD History and Physical CHIEF COMPLAINT: Abdominal pain HISTORY OF PRESENT ILLNESS: Jaclyn is a pleasant 69yo female with notable PMHx of Ovarian CA diagnosed 04/2018 s/p janell-adjuvant chemo tumor resection and oophorectomy and immunotherapy, medication-associated htn, pAfib not on AC, gerd, chronic anemia, and osteoporosis, who was driven to the ED by her [place] early on the morning of 03/07/2020 with the chief complaint of sharp, intense abdominal pain. Soon after eating dinner around 7 PM on the evening of 03/06, Jaclyn began to experience bilateral upper abdominal pain that she describes as sharp with intermittent radiation to her back. She rated the pain at 10/10. A couple hours after pain onset, she experienced 1 episode of nonbloody emesis. She tried both Gas-X and Maalox without any relief and subsequently made the decision to present to the ED. Of note, her last bowel movement was on the morning of 03/06 and was normal. She has not had any recent change in her bowel habits other than 1. "Looser" bowel movement a couple days ago. She denies any hematochezia, melena, consistent diarrhea or constipation. She had not had any recent emesis prior to the one aforementioned episode on evening of 03/06. In the ED, from a clinical perspective, her pain and discomfort improved greatly (decreased from 10/10 to 1-2/10) after administration of morphine and Zofran. She also had significant elevated blood pressure initially with systolics around 200. That quickly improved as her pain was treated. Her labs (CBC, CMP, UA, lactic acid, lipase, cardiac enzymes) were relatively unremarkable other than borderline leukocytosis (WBC 11.6). The significant finding was by imaging with CT abdomen and pelvis which showed "evidence for small bowel obstruction"in the mid abdominal region that "may be secondary to an adhesion." The impression from the study also found visual evidence for fatty liver, antral gastritis, and some mild diverticulosis in the sigmoid colon without diverticulitis. The ED contacted on-call the general surgeon (Dr. Anderson) about Jaclyn's case and he is slated to evaluate her later this morning (03/07). Jaclyn was subsequently admitted to the care of the hospitalist service with formal consultation of general surgery (Dr. Anderson). In preparation for possible procedure, patient was made npo and a NG tube was ordered to low intermittent suction with associated analgesia and antiemesis prn pharmacotherapy coverage. PAST MEDICAL HISTORY: Ovarian cancer- diagnosed 04/2018, s/p janell-adjuvant chemotherapy, surgical resection of tumor and oophorectomy, and immunotherapy with bevacizumab Medication associated hypertension, due to bevacizumab Paroxysmal atrial fibrillation, not on anticoagulation, only on daily aspirin; follows with cardiology as outpatient (Dr. Denson); 3 episodes in the last 12 years Chronic anemia. Osteoporosis. GERD PAST SURGICAL HISTORY: Surgical resection of ovarian malignant tumor and oophorectomy, September 2018 Total vaginal hysterectomy without salpingectomy, patient was in her 30s. Appendectomy in childhood. Ultrasound-guided liver biopsy, April 2018 Stereotactic right breast biopsy, March 2003. Most recent colonoscopy and upper endoscopy February 2012 SOCIAL HISTORY: , lives with her . 2 grown children. 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 Denies any current or former use of tobacco products or illicit drugs. She would drink alcohol very intermittently on social basis, but no longer drinks any alcohol. After being diagnosed with paroxysmal atrial fibrillation. 12 years ago. FAMILY HISTORY: Father: in his 70s, prostate cancer Mother: at 88 years old, hypertension, COPD Siblings: One sister, alivesleep apnea; oldest brother, diabetes; 3 brothers all with osteoarthritis ALLERGIES: Please see below. REVIEW OF SYSTEMS: CONSTITUTIONAL: Denies recent unintentional change in weight, fever, chills, or night sweats HEENT: Reports postnasal drip. Denies double vision, blurry vision, tinnitus, ear pain, dysphagia, or odynophagia CARDIOVASCULAR: Denies chest pain, chest pressure, or palpitations RESPIRATORY: Reports dry cough associated with postnasal drip. Denies shortness of breath, pleuritic chest pain, or productive sputum GASTROINTESTINAL: Reports abdominal pain with 1 episode of emesis discussed extensively in HPI. 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 Denies headache, lightheadedness, dizziness, gait instability, recent falls ENDOCRINE: Reports recent cold intolerance. Denies heat intolerance. HEMATOLOGIC/LYMPHATIC: Denies easy bleeding, easy bruising, or any new lumps or bumps. HOME MEDICATIONS: Please see below. PHYSICAL EXAMINATION: VITAL SIGNS: Temperature 98.4, pulse 71, respiratory rate 20, blood pressure 175/87, pulse oximetry, 100 % on room air. GENERAL APPEARANCE: Pleasant, elderly female lying upright in bed. No acute distress. Alert and oriented 3. HEENT: No cephalic, atraumatic. Wearing eyeglasses. Noninjected, anicteric sclerae. PERRLA. EOMI. No significant conjunctival pallor. Moist mucous membranes with no pharyngeal erythema or exudate. NECK: Supple. Trachea midline. No lymphadenopathy. CARDIOVASCULAR: Regular rate, regular rhythm. Normal S1, S2. No murmurs or rubs appreciated. LUNGS: Clear to auscultation bilaterally with no evidence his breath sounds appreciated. Breathing room air. Speaking full sentences. Symmetric chest expansion. ABDOMEN: Soft, moderate tenderness of right upper and left upper quadrants, epigastrium, and periumbilically. Mild tenderness suprapubically. No significant distention appreciated. Intermittent high pitched sounds/squeaks appreciated on auscultation. Negative Chapman's sign. No rigidity appreciated. No hepatosplenomegaly appreciated. MUSCULOSKELETAL: 5/5 muscle strength testing of upper and lower strength is bilaterally. EXTREMITIES: 1+ pitting edema of distal lower extremity bilaterally, left lower extremity slightly greater than right lower extremity. No signs of clubbing or cyanosis. 2+ radial and posterior tibial pulses bilaterally. NEUROLOGICAL: Awake, alert and oriented 3. No focal neurologic deficits appreciated. Non-dysarthric speech. PSYCHIATRIC: Pleasant mood and appropriate appearing affect. LABORATORY DATA: Please see below. IMAGING: CT Abdomen/Pelvis w/ IV contrast only, 03/07/2020- IMPRESSION: 1. Evidence for a small bowel obstruction with a transition point in the anterior aspect of the mid abdominal region located approximately 2.5 cm to the left of midline and approximately 5 cm inferior to the umbilicus, which may be secondary to an adhesion. 2. Antral gastritis. 3. Mild sigmoid diverticulosis without evidence for diverticulitis. 4. Fatty liver. MICROBIOLOGY: Please see below. ASSESSMENT & PLAN: This is a 69-year-old female w/ notable h/o ovarian CA s/p janell-adj chemo/sx resection/immunotherapy, medication-associated htn, pAfib not on ac, chronic anemia, osteoporosis, and gerd, who presented to ED in the early hours of 03/07/2020 with a chief complaint of 10/10, sharp, bilateral upper abdominal pain intermittently rating to her back w/ one episode of emesis; all of which occurred after eating dinner around 7 PM on the evening of 03/06/20. She also had had hypertensive urgency that was most likely exacerbated by her pain. Once treated with analgesia and anti-medic occasions, patient's pain decreased to 12/10 and blood pressure steadily came down to the 150s/160s systolic. CT abdomen and pelvis revealed visual evidence of small bowel obstruction. The mid abdominal region that was thought to potentially be result of an adhesion. ED contacted on-call general surgeon (Dr. Anderson), who is planning to see patient later in the morning of 03/07/20. Patient was subsequently admitted under care of the hospitalist service, made npo with NG tube, as well as analgesic and anti-medic medication coverage. #SBO likely 2/2 adhesions -CT abdomen and pelvis showed evidence of SBO of the mid abdominal region with transition point in the anterior aspect roughly 2.5 cm to left of midline and about 5 cm below the umbilicus. Reading and depression. Also stipulated that SBO was likely secondary to an adhesion. Of additional note, antral gastritis, fatty liver, and mild sigmoid diverticulosis without diverticulitis were appreciated as well. -ED contacted on-call general surgeon (Dr. Anderson) was made aware of the case and will plan to see patient later on 03/07/20. Official consultation has been placed to Gen. surgery and primary hospitalist service sincerely appreciate's the collaboration, evaluation, and recommendations from Dr. Anderson. -NG tube ordered to be started at low intermediate suction. -Pt was made npo in preparation for possible procedure. -Maintenance IV fluids were started in the form of normal saline. -Prn zofran and morphine ordered, as well as qd iv protonix -Coagulation panel, as well as T&S, ordered #Medication-associated htn -Patient developed hypertension secondary to bevacizumab (immunotherapy treatment for ovarian cancer). Per review of current literature, approximately 19% of all patients who take bevacizumab develop. Hypertension. -Patient takes spironolactone. His outpatient, this was held in the setting of npo. -Patient presented to the ED with hypertensive urgency that quickly improved with steadily decreasing systolic blood pressures after pain was addressed. -A low dose of amlodipine was ordered to further maintain adequate blood pressure. NG tube will be clamped for approximately half an hour to allow for maximal absorption and then subsequently unclamped. #Paroxysmal atrial fibrillation -Patient is not on anticoagulation as outpatient and takes antiplatelet (81 Aspirin) daily. -Patient reports having 3 episodes of A. fib over the past 12 years and follows on a yearly basis with outpatient cardiology (Dr. Denson) ChadsVasc score was 3 (one point each for age, gender, and hypertension), indicating that patient should be on anticoagulation as outpatient. 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 -The day hospitalist provider may consider starting anticoagulation upon discharge in the setting of possible surgery during this admission as well as related immobility from being bed bound, both factors at increased risk of stroke. #History of ovarian cancer -Patient was diagnosed in April 2018 with ovarian cancer and subsequently underwent neoadjuvant chemotherapy followed by surgical resection of tumor and oophorectomy. She recently completed treatment with immunotherapy in the form of bevacizumab, with last dose occurring in mid December 2019. -She follows as an outpatient with Dr. Tyra Molina of medical oncology at the [facility]. #H/o GERD -Patient is on oral Protonix as outpatient. Due to npo status in preparation for possible procedure, IV Protonix were ordered. #H/o chronic anemia -Patient reported history of chronic anemia. Upon presentation for this admission, his hemoglobin was within normal limits. -Follow-up CBC as well as a type and screen in preparation for possible surgery have been ordered #H/o osteoporosis -Patient reports history of osteoporosis and takes vitamin D supplement as outpatient. She is not on any bisphosphonate or prolia as outpt. #DVT prophylaxis: TEDs and SCDs; Anticoagulation was deferred in setting of possible upcoming surgical procedure. Disposition: Pending evaluation and collaborative decision made with general surgery service for possible intervention with SBO Vital Signs Vital Signs Date Time Temp Pulse Resp B/P (MAP) Pulse Ox O2 Delivery O2 Flow Rate FiO2 03/07/20 04:05 20 100 Room Air 03/07/20 02:35 175/87 (116) 03/07/20 02:30 71 03/07/20 02:00 2.0 03/07/20 00:26 98.4 Laboratory Data Labs 24H Laboratory Tests 2 03/07/20 00:53: Immature Granulocyte % (Auto) 0.3, Neutrophils (%) (Auto) 86.0H, Lymphocytes (%) (Auto) 7.5L, Monocytes (%) (Auto) 5.6H, Eosinophils (%) (Auto) 0.3, Basophils (%) (Auto) 0.3, Neutrophils # (Auto) 9.9H, Lymphocytes # (Auto) 0.9L, Monocytes # (Auto) 0.7, Eosinophils # (Auto) 0.0, Basophils # (Auto) 0.0, Nucleated Red Blood Cells % (auto) 0.0, Anion Gap 7L, Glomerular Filtration Rate > 60.0, Lactic Acid Level 0.8, Calcium Level 9.5, Total Bilirubin 0.3, Direct Bilirubin 0.1, Aspartate Amino Transf (AST/SGOT) 15, Alanine Aminotransferase (ALT/SGPT) 24, Alkaline Phosphatase 94, Total Creatine Kinase 60, Creatine Kinase MB < 1.0, Creatine Kinase MB Relative Index 1.67, Troponin I < 0.02, Total Protein 7.7, Albumin 4.1, Albumin/Globulin Ratio 1.1L, Lipase 121 03/07/20 03:32: Urine Color STRAW, Urine Appearance CLEAR, Urine pH 8.0, Urine Specific Bryant 1.044, Urine Protein 1+H, Urine Glucose (UA) NEGATIVE, Urine Ketones NEGATIVE, Urine Blood NEGATIVE, Urine Nitrite NEGATIVE, Urine Bilirubin NEGATIVE, Urine Urobilinogen 0.2, Urine Leukocyte Esterase TRACEH, Urine WBC (Auto) 2, Urine RBC (Auto) 1, Urine Hyaline Casts (Auto) 0, Urine Bacteria (Auto) NEGATIVE, Urine Squamous Epithelial Cells 0, Urine Sperm (Auto) , Coronavirus (COVID-19)(PCR) NEGATIVE, Influenza Type A (RT-PCR) NEGATIVE, Influenza Type B (RT-PCR) NEGATIVE, Respiratory Syncytial Virus (PCR) NEGATIVE CBC/BMP Laboratory Tests 03/07/20 00:53 Microbiology Microbiology 03/07/20 Urine Culture, Received Pending Home Medications Scheduled Aspirin (Aspirin EC) 81 Mg Tab, 81 MG PO DAILY Calcium Carbonate/Vitamin D3 (Calcium 600 + Vit D 400 Softgl) 1 Each Capsule, 1 CAP PO BID Clindamycin Phosphate (Clindamycin Phosphate) 1% 30GM Gel..gram., 1 APLCT TOP DAILY apply to face Cyanocobalamin (Vitamin B-12) (Vitamin B-12) 500 Mcg Tab, 1,000 MCG PO DAILY Esomeprazole Magnesium (Nexium) 40 Mg Capsule.dr, 40 MG PO DAILY Famotidine (Famotidine) 20 Mg Tablet, 20 MG PO QHS Glutamine (l-Glutamine) 500 Mg Tablet, 1,000 MG PO QPM Loratadine (Claritin) 10 Mg Capsule, 10 MG PO DAILY Magnesium Chloride (Mag64) 64 Mg Tabcr, 64 MG PO BID Montelukast Sodium (Montelukast Sodium) 10 Mg Tablet, 10 MG PO DAILY Multivit-Min/Folic Acid/Vit K1 (Multi For Her 50 Plus Softgel) 1 Each Capsule, 1 EACH PO DAILY Spironolactone (Spironolactone) 25 Mg Tablet, 12.5 MG PO DAILY Scheduled PRN Tretinoin (Tretinoin) 20 Gm Cream..g., 1 APLCT TOP QPM PRN for breakouts apply to face Triamcinolone Acetonide (Triamcinolone Acetonide) 60 Ml Lotion, 1 APLCT TOP QWEEK PRN for itching apply to scalp Allergies Coded Allergies: chocolate flavor (Verified Allergy, Mild, rash, 06/12/18) Milk Containing Products (Verified Adverse Reaction, Mild, rash, 06/12/18) Sulfa (Sulfonamide Antibiotics) (Verified Adverse Reaction, Mild, diarrhea, 06/12/18) A-FIB/CHADSVASC A-FIB History Current/History of A-Fib/PAF?: Yes Current PO Anticoag Therapy: No (patient is not on anticoagulation as outpatient. She only takes antiplatelet medication the form of daily aspirin.) GME ATTESTATION GME ATTESTATION My faculty preceptor for this patient encounter was physically present during the encounter and was fully available. All aspects of the patient interview, examination, medical decision making process, and medical care plan development were reviewed and approved by the faculty preceptor. The faculty preceptor is aware and concurs with the plan as stated in the body of this note and will attest to such by his/her cosignature. ATTENDING NOTE TIME OF SERVICE is a 69 yr old w a hx of ovarian cancer & parox afib who presented w c/o of abdominal pain and was found to have an SBO. Plan: admit to medical floor / NPO / IVF / NG to LIS / morphine for pain / f/u w in the morning. Rest per 's H&P WILLIAMS HOLCOMB D.O. Mar 07, 2020 04:39 REINA BURRELL MD Mar 07, 2020 05:03
[2020-03-07] MEDS ORDERED: NS 1,000 ML IV ONE (05:45)
[2020-03-07] MEDS ORDERED: MORPHINE 4 MG/ML 1ML VIAL/SYRINGE (J2270) IV PRN (05:45)
[2020-03-07 06:11] VITALS: BP 151/71
[2020-03-07] MEDS ORDERED: amLODIPine 5 MG TAB PO ONE (06:30)
--- NOTE | 2020-03-07 07:57 | REP ---
INDICATION: NG tube placement COMPARISON: 10/28/2019 TECHNIQUE: Portable AP view of the chest FINDINGS: Nasogastric tube courses below the left hemidiaphragm. [id number] identified with tip in the SVC. A small amount of free air below the left hemidiaphragm cannot definitively be excluded. The mediastinum and cardiac silhouette are stable and within normal limits for portable technique. The lung yeager are clear without acute consolidation, effusion, or pneumothorax. Skeletal structures are intact. IMPRESSION: 1. Nasogastric tube in satisfactory position. 2. Small amount of free air below the left hemidiaphragm cannot be excluded and requires clinical correlation. <Electronically signed by Hunter Puentes > 03/07/20 [id number]
[2020-03-07] MEDS: PANTOPRAZOLE 40MG VIAL (C9113 PER 1) IV SCH (08:12)
[2020-03-07] MEDS: MORPHINE 2 MG/ML 1ML VIAL (J2270) IV PRN ×5 (08:13→22:59)
[2020-03-07 08:42] LABS: INR 0.92; PARTIAL THROMBOPLASTIN TIME 24.7 SECONDS (24.2-38.5); PROTHROMBIN TIME 12.5 SECONDS (12.5-14.3)
--- NOTE | 2020-03-07 08:47 | REP ---
INDICATION: ng tube placement COMPARISON: 03/07/2020 at 7:40 a.m. TECHNIQUE: Portable AP view of the chest FINDINGS: Nasogastric tube courses below the left hemidiaphragm in satisfactory position. Small amount of free air below the left hemidiaphragm suggests recent surgery or perforation and requires correlation. [id number] identified with tip in the SVC. Cardiac silhouette is normal. Visualized lung yeager are clear. IMPRESSION: 1. Nasogastric tube in satisfactory position. 2. Free air below left hemidiaphragm. Differential diagnosis includes recent surgery and perforation. Correlation is required. Findings discussed with patient's nurse. 3. No acute mediastinal or pleuroparenchymal process appreciated. <Electronically signed by Hunter Puentes > 03/07/20 0997
[2020-03-07] MEDS: CHLORASEPTIC SPRAY MT PRN ×3 (10:37→22:59)
[2020-03-07] MEDS: ONDANSETRON 4MG/2ML VIAL IV PRN ×2 (11:35→22:57)
--- NOTE | 2020-03-07 12:27 | ECGEPIP ---
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
--- NOTE | 2020-03-07 12:47 | REP ---
INDICATION: ?free air on xray COMPARISON: None TECHNIQUE: Axial noncontrast images of the abdomen with coronal and sagittal reformations. This CT examination was performed using the following dose reduction techniques: Automated exposure control, adjustment of mA and/or kv according to the patient's size, and use of iterative reconstruction technique. FINDINGS: Lung bases are clear. Visualized heart and pericardium normal. There is no evidence for pneumoperitoneum. A nasogastric tube extends into a distended fluid-filled stomach and there is evidence for small bowel obstruction. Visualized fluid filled loops of small bowel measure up to approximately 3.5 cm diameter with collapsed small bowel noted in the visualized right abdomen. Liver, spleen, pancreas, and bilateral adrenal glands are normal. Contrast accumulation within the gallbladder and within bilateral medullary pyramids related to previous contrast enhanced CT of the abdomen and pelvis performed 03/07/2020 is nonspecific. No free air. No visible ascites. No obvious adenopathy. IMPRESSION: 1. No evidence for pneumoperitoneum. 2. Findings compatible with small-bowel obstruction. <Electronically signed by Hunter Puentes > 03/07/20 [id number]
[2020-03-07 14:00] VITALS: BP 142/73
[2020-03-07] MEDS ORDERED: LIDOCAINE VISCOUS 2% SOLN 15ML UDC SS ONE (17:30)
[2020-03-07] MEDS: NS 1,000 ML IV SCH ×2 (18:05→19:34)
--- NOTE | 2020-03-07 18:29 | REP ---
INDICATION: NG tube placement COMPARISON: None. TECHNIQUE: Portable AP view of the chest FINDINGS: Nasogastric tube extends below the left hemidiaphragm in satisfactory position. [id number] with tip in the SVC remains stable. The mediastinum and cardiac silhouette are stable and within normal limits for portable technique. The lung yeager are clear without acute consolidation, effusion, or pneumothorax. Skeletal structures are intact. IMPRESSION: No acute cardiopulmonary process appreciated. <Electronically signed by Hunter Puentes > 03/07/20 [id number]
--- NOTE | 2020-03-07 21:10 | CR ---
CONSULTATION DATE: 03/07/2020 REASON FOR CONSULTATION: Small-bowel obstruction SUBJECTIVE: The patient was seen early this morning for a small-bowel obstruction seen on CAT scan overnight. She was admitted to the Floor and was kept n.p.o., had a small NG tube in place but really was not draining anything. She was still complaining of crampy abdominal pain when I saw her early in the morning. I was called to see the patient specifically for small-bowel obstruction associated with a history of ovarian cancer, status post neoadjuvant chemotherapy, oophorectomy, immunotherapy, with a tumor debulking. She has had treatment and follow up CAT scans which showed "no evidence of residual disease". She presents with some diarrhea that occurred about 24 hours prior to admission and then developed decreased bowel movement, crampy abdominal pain with nausea and eventually vomiting. She noticed that after vomiting she felt better. Since admission early in the morning, she states that her abdomen feels less distended than it was earlier on. PAST MEDICAL HISTORY: The patient's past medical history is significant for: 1. History of ovarian cancer, status post tumor debulking, tumor resection, oophorectomy, immunotherapy. 2. History of hypertension. 3. History of paroxysmal atrial fibrillation. 4. History of chronic anemia. 5. History of osteoporosis. 6. History of gastroesophageal reflux disease. SURGICAL HISTORY: The patient's past surgical history is significant for: 1. History of total vaginal hysterectomy with salpingo-oophorectomy. 2. History of appendectomy. 3. History of stereotactic right breast biopsy. ALLERGIES: MEDICATIONS: 1. Aspirin. 2. Calcium Carbonate. 3. Clindamycin Gel. 4. B-12. 5. Nexium. 6. Famotidine. 7. L'Glutamine. 8. Claritin. 9. Magnesium supplements. 10. Montelukast. 11. Sodium. 12. Multivitamins. 13. Spironolactone. 14. Some p.r.n. medications. PHYSICAL EXAMINATION: GENERAL APPEARANCE: A 69-year-old female who looks older than her stated age. HEENT: Unremarkable. NECK: Supple without adenopathy. LUNGS: Clear. HEART: Regular. ABDOMEN: Soft, mildly distended in the suprapubic area and the periumbilical area. But no guarding, no rebound, no peritoneal signs are appreciated. EXTREMITIES: Warm and well perfused. Her NG tube is not functioning all that well at this point, thus I will have the nurses manipulate the tube at this time. IMPRESSION AND PLAN: The patient has most likely a small-bowel obstruction secondary to adhesions. That is the most likely etiology but still, given her history, I would still be very concerned that there might be some other etiology, i.e., a malignant etiology, although this seems less likely at this time, but that is something that if she does not have resolution of her obstructive symptoms, it could easily be that there is some sort of recurrence present contributing to this obstruction. In any case, n.p.o., IV fluids and NG tube to low intermittent suction, and we will see how she does with this. The NG tube to look for NG tube placement showed the diaphragm very well in the left upper quadrant and essentially the concern by the radiologist was that there may be a perforation, thus given this, despite having stable vitals, not having increasing abdominal pain and an exam not consistent with peritonitis, etc., despite this, I felt that with the concern of the possible perforation, we should obtain a CAT scan of the abdomen without contrast and indeed this was performed and did not reveal any perforation. However on this film, I could tell that the stomach was getting more distended and there was much more fluid in it and the small-bowel obstruction picture appeared to have dilated up even the proximal small bowel. Thus given this presentation, I went back to evaluate her NG tube and discuss the findings, and specifically, the NG tube, I manipulated this, was able to have her turn in different positions and after irrigating/aspirating, I was able to get about 300 mL of bilious fluid out, although it was very difficult to get it moving. It was a very small NG tube, thus I discussed with the nursing to frequently irrigate this to see if she could get this working a little bit better. If not, then we may need to replace this for a bigger tube. At this time I do feel that we need to give this a better chance at decompression and I feel at this point it has been an insufficient decompression with this NG tube. We will see what we can do with this, and depending on how she is doing, we will get some follow up studies in the morning.
[2020-03-08 05:27] LABS: HEMATOCRIT 38.7 % (36.0-47.0); HEMOGLOBIN 12.1 g/dl (12.0-15.5); MEAN CORPUSCULAR HEMOGLOBIN 30.6 pg (27.0-33.0); MEAN CORPUSCULAR HGB CONC 31.3 g/dl (32.0-36.5); PLATELET COUNT, AUTOMATED 272 10^3/uL (150-450); RED BLOOD COUNT 3.95 10^6/uL (4.00-5.40); WHITE BLOOD COUNT 5.9 10^3/uL (4.0-10.0)
[2020-03-08 05:59] LABS: ALBUMIN 2.8 GM/DL (3.2-5.2); ALT/SGPT 17 U/L (12-78); BILIRUBIN,TOTAL 0.6 MG/DL (0.2-1.0); BLOOD UREA NITROGEN 22 MG/DL (7-18); CALCIUM LEVEL 7.5 MG/DL (8.8-10.2); CARBON DIOXIDE LEVEL 30 MEQ/L (21-32); CHLORIDE LEVEL 106 MEQ/L (98-107); GLOMERULAR FILTRATION RATE > 60.0 (>39); GLUCOSE, FASTING 102 MG/DL (70-100); POTASSIUM SERUM 4.4 MEQ/L (3.5-5.1); SODIUM LEVEL 140 MEQ/L (136-145); TOTAL PROTEIN 5.8 GM/DL (6.4-8.2)
[2020-03-08] MEDS ORDERED: KETOROLAC 30 MG/ML 1ML VIAL IV SCH (08:00)
[2020-03-08] MEDS ORDERED: MORPHINE 2 MG/ML 1ML VIAL (J2270) IV PRN (08:00)
[2020-03-08] MEDS: PANTOPRAZOLE 40MG VIAL (C9113 PER 1) IV SCH (08:19)
[2020-03-08] MEDS ORDERED: ACETAMINOPHEN 325 MG/10.15 ML UDC GT PRN (08:30)
[2020-03-08 10:00] VITALS: BP 153/78
[2020-03-08] MEDS: NS 1,000 ML IV SCH ×3 (11:19→20:06)
--- NOTE | 2020-03-08 13:26 | IPNPDOC ---
Date Seen The patient was seen on 03/08/20. Progress Note SUBJECTIVE: Less distention, pain improved. KUB scheduled for 03/09/20 in AM, decreased frequency and dose of morphine, added toradol. Headache likely from morphine. Denies n/v/d, fevers, chills, incr abd pain. OBJECTIVE: PHYSICAL EXAMINATION: VITAL SIGNS: Please see below GENERAL APPEARANCE: Resting in bed, NAD. HEENT: AT/NC, PERLLA, EOM intact. corrective lenses in place. NG tube secured to nose NECK: Supple. Trachea midline. No lymphadenopathy. CARDIOVASCULAR: Regular rate, regular rhythm. Normal S1, S2. No murmurs or rubs appreciated. LUNGS: CTAB, no W/R/R ABDOMEN: Soft, moderate tenderness of right upper and left upper quadrants, lower abdomen b/l. Decreased distention. BS + in 4 quad. No rigidity appreciated. No hepatosplenomegaly appreciated. MUSCULOSKELETAL: 5/5 muscle strength testing of upper and lower strength is bilaterally. EXTREMITIES: 1+ pitting edema of distal lower extremity bilaterally, left lower extremity slightly greater than right lower extremity. No signs of clubbing or cyanosis. 2+ radial and posterior tibial pulses bilaterally. NEUROLOGICAL: Awake, alert and oriented 3. No focal neurologic deficits appreciated. PSYCHIATRIC: normal mood and affect LABORATORY DATA: Please see below. IMAGING: Repeat CT abd/pelvis 03/07/20: 1. No evidence for pneumoperitoneum. 2. Findings compatible with small-bowel obstruction. CT Abdomen/Pelvis w/ IV contrast only : 1. Evidence for a small bowel obstruction with a transition point in the a nterior aspect of the mid abdominal region located approximately 2.5 cm to the left of midline and approximately 5 cm inferior to the umbilicus, which may be secondary to an adhesion. 2. Antral gastritis. 3. Mild sigmoid diverticulosis without evidence for diverticulitis. 4. Fatty liver. MICROBIOLOGY: Please see below. ASSESSMENT: This is a 69-year-old female w/ notable h/o ovarian CA s/p janell-adj chemo/sx resection/immunotherapy, medication-associated htn, pAfib not on ac, chronic anemia, osteoporosis, and gerd, who was admitted for SBO. #SBO likely 2/2 adhesions -Repeat CT abdomen and pelvis: no free air or pneumoperitoneum. -Decreased distention, pain -NG tube to IS -Repeating KUB 03/09/20 per surgery -C/w NPO status, IVFs. Decreased IV morphine dose and frequency, added toradol. PRN Zofran, PPI -Daily labs, replace lytes PRn #HTN likely 2/2 to medication -Patient developed hypertension secondary to bevacizumab (immunotherapy treatment for ovarian cancer). Per review of current literature, approximately 19% of all patients who take bevacizumab develop. Hypertension. -Patient takes spironolactone. His outpatient, this was held in the setting of npo. #Paroxysmal atrial fibrillation -Patient is not on anticoagulation as outpatient and takes antiplatelet (81 Aspirin) daily. -Stable #History of ovarian cancer -Patient was diagnosed in April 2018 with ovarian cancer and subsequently underwent neoadjuvant chemotherapy followed by surgical resection of tumor and oophorectomy. She recently completed treatment with immunotherapy in the form of bevacizumab, with last dose occurring in mid December 2019. -She follows as an outpatient with Dr. Tyra Molina of medical oncology at the [facility]. #H/o GERD -IV PPI #H/o chronic anemia -Patient reported history of chronic anemia. -H/H stable. -CBC daily #H/o osteoporosis -C/w supplements when taking PO #DVT prophylaxis: -Enoxaparin SC Disposition: General surgery following, no surgery for now. Will need PT evaluation prior to d/c. Plan is home VS, I&O, 24H, Fishbone Vital Signs/I&O Vital Signs Date Time Temp Pulse Resp B/P (MAP) Pulse Ox O2 Delivery O2 Flow Rate FiO2 03/08/20 10:00 97.5 76 18 153/78 (103) 92 Room Air 03/07/20 02:00 2.0 I&O- Last 24 Hours up to 6 AM 03/08/20 06:00 Intake Total 1500 ml Output Total 1850 ml Balance -350 ml Laboratory Data 24H LABS Laboratory Tests 2 03/08/20 04:53: Nucleated Red Blood Cells % (auto) 0.0, Anion Gap 4L, Glomerular Filtration Rate > 60.0, Calcium Level 7.5#L, Total Bilirubin 0.6#, Aspartate Amino Transf (AST/SGOT) 13, Alanine Aminotransferase (ALT/SGPT) 17, Alkaline Phosphatase 69, Total Protein 5.8#L, Albumin 2.8#L, Albumin/Globulin Ratio 0.9L CBC/BMP Laboratory Tests 03/08/20 04:53 Microbiology Microbiology 03/07/20 Urine Culture - Final, Complete Current Medications Current Medications Medications (Trade) Dose Ordered Sig/Ki Route PRN Reason Start Time Stop Time Status Last Admin Dose Admin Acetaminophen (Tylenol Suspension) 650 mg Q4HP PRN GT PAIN OR FEVER 03/08/20 08:30 Home Med (Med Rec Complete!) ASDIRECTED XX 03/07/20 04:00 03/07/20 03:52 DC Ketorolac Tromethamine (ToRADol) 15 mg Q8H IV 03/08/20 08:00 03/08/20 08:22 DC 03/08/20 08:20 Ketorolac Tromethamine (ToRADol) 30 mg Q6H PRN IV PAIN 03/08/20 15:00 03/13/20 14:59 Morphine Sulfate (Morphine Sulfate Inj) 1 mg Q6HP PRN IV MODERATE/SEVERE PAIN (PS 5-10) 03/08/20 08:00 Morphine Sulfate (Morphine Sulfate Inj) 2 mg Q3H PRN IV MODERATE/SEVERE PAIN (PS 5-10) 03/07/20 06:30 03/08/20 07:55 DC 03/07/20 22:59 Morphine Sulfate (Morphine Sulfate Inj) 4 mg Q30M PRN IV SEVERE PAIN (PS 8-10) 03/07/20 01:15 03/07/20 04:06 DC 03/07/20 04:05 Morphine Sulfate (Morphine Sulfate Inj) 4 mg Q4HP PRN IV SEVERE PAIN (PS 8-10) 03/07/20 05:45 03/07/20 06:26 DC Ondansetron HCl (ZOFRAN INJection) 4 mg Q6HP PRN IV NAUSEA OR VOMITING 03/07/20 07:15 03/07/20 22:57 Pantoprazole Sodium (Protonix) 40 mg DAILY IV 03/07/20 09:00 03/08/20 08:19 Phenol (Chloraseptic [place]) 1 spray Q2HP PRN MT SORE THROAT 03/07/20 08:15 03/07/20 22:59 Sodium Chloride 1,000 ml @ 125 mls/hr Q8H IV 03/07/20 18:00 03/08/20 11:19 Allergies Coded Allergies: chocolate flavor (Verified Allergy, Mild, rash, 06/12/18) Milk Containing Products (Verified Adverse Reaction, Mild, rash, 06/12/18) Sulfa (Sulfonamide Antibiotics) (Verified Adverse Reaction, Mild, diarrhea, 06/12/18) Adalgisa Polanco MD Mar 08, 2020 13:26
[2020-03-08] MEDS: KETOROLAC 30 MG/ML 1ML VIAL IV PRN ×2 (14:32→20:06)
[2020-03-08 22:00] VITALS: BP 174/80
[2020-03-08] MEDS ORDERED: FAMOTIDINE 20 MG TAB PO ONE (23:45)
[2020-03-09 05:36] LABS: HEMATOCRIT 33.6 % (36.0-47.0); HEMOGLOBIN 10.2 g/dl (12.0-15.5); MEAN CORPUSCULAR HEMOGLOBIN 29.7 pg (27.0-33.0); MEAN CORPUSCULAR HGB CONC 30.4 g/dl (32.0-36.5); PLATELET COUNT, AUTOMATED 225 10^3/uL (150-450); RED BLOOD COUNT 3.43 10^6/uL (4.00-5.40); WHITE BLOOD COUNT 5.5 10^3/uL (4.0-10.0)
[2020-03-09 05:58] LABS: ALBUMIN 2.5 GM/DL (3.2-5.2); ALT/SGPT 16 U/L (12-78); BILIRUBIN,TOTAL 0.4 MG/DL (0.2-1.0); BLOOD UREA NITROGEN 13 MG/DL (7-18); CALCIUM LEVEL 7.3 MG/DL (8.8-10.2); CARBON DIOXIDE LEVEL 27 MEQ/L (21-32); CHLORIDE LEVEL 111 MEQ/L (98-107); CREATININE FOR GFR 0.38 MG/DL (0.55-1.30); GLOMERULAR FILTRATION RATE > 60.0 (>39); GLUCOSE, FASTING 67 MG/DL (70-100); POTASSIUM SERUM 3.4 MEQ/L (3.5-5.1); SODIUM LEVEL 142 MEQ/L (136-145); TOTAL PROTEIN 5.7 GM/DL (6.4-8.2)
[2020-03-09 06:00] VITALS: BP 170/76
[2020-03-09] MEDS: KETOROLAC 30 MG/ML 1ML VIAL IV PRN ×2 (08:14→20:51)
[2020-03-09] MEDS ORDERED: CYANOCOBALAMIN 500 MCG TAB PO ONE (08:15)
[2020-03-09] MEDS ORDERED: ACETAMINOPHEN *IV* 1,000 MG in IV 1 EA IV ONE (08:15)
[2020-03-09] MEDS ORDERED: GLUCOSE 4GM CHEW TABLET PO PRN (08:15)
[2020-03-09] MEDS ORDERED: DEXTROSE 50% 50 ML SYRINGE IV PRN (08:15)
[2020-03-09] MEDS: ENOXAPARIN 40MG/0.4ML SYRINGE (J1650 PER 10MG) SC SCH (08:15)
[2020-03-09] MEDS ORDERED: METOCLOPRAMIDE INJ 10MG/2ML VIAL (J2765 PER 1) IV ONE (08:15)
[2020-03-09] MEDS ORDERED: GLUCAGON INJ 1MG VIAL SC PRN (08:15)
[2020-03-09] MEDS ORDERED: PANTOPRAZOLE 40MG VIAL (C9113 PER 1) IV SCH (09:00)
[2020-03-09] MEDS ORDERED: NON-FORMULARY 1 EA EA SL SCH (09:00)
--- NOTE | 2020-03-09 10:22 | REP ---
INDICATION: sbo COMPARISON: None. TECHNIQUE: Upright view of the chest with supine and upright views of the abdomen and pelvis. FINDINGS: Nasogastric tube courses below the left hemidiaphragm. [id number] identified with tip in the SVC. Frontal upright view of the chest demonstrates no acute cardiopulmonary process or free air below the diaphragm to suspect pneumoperitoneum. Supine and upright views of the abdomen and pelvis demonstrate nonspecific bowel gas pattern without obstruction or perforation. Moderate fecal stasis of the colon is suggested. No organomegaly. No abnormal calcifications. Skeletal structures normal for age. IMPRESSION: 1. No evidence for bowel obstruction. 2. Moderate colonic fecal stasis. <Electronically signed by Hunter Puentes > 03/09/20 [id number]
[2020-03-09] MEDS: NS 1,000 ML IV SCH (10:56)
[2020-03-09] MEDS ORDERED: amLODIPine 10 MG TAB PO ONE (12:00)
--- NOTE | 2020-03-09 12:02 | IPNPDOC ---
Date Seen The patient was seen on 03/09/20. Progress Note SUBJECTIVE: Patient denies nausea, vomiting, shortness of breath despite being on IV fluids. She has now, I'll pain and passing flatus. She has walked around twice around the floor yesterday and feels very comfortable. Nasogastric tube has been draining less. According to nursing, patient is anxious to eat and anxious to go home soon. She denies any worsening abdominal pain, has less abdominal distention today than yesterday and feels generally better. OBJECTIVE: PHYSICAL EXAMINATION: VITAL SIGNS: Please see below GENERAL APPEARANCE: Nasogastric tube. No pallor, icterus or distress, speaks in full sentences HEENT: No JVD or thyromegaly. Nasogastric tube. Dry mucous membranes , Heart: Regular rate, regular rhythm. Normal S1, S2. No murmurs or rubs appreciated. LUNGS: CTAB, no adventitious breath sounds ABDOMEN: Soft, doughy distended, hyperactive bowel sounds in 4 quadrants . Extremities: 1+ pitting edema bilateral lower extremities. No cyanosis, no clubbing Input and output: Reviewed LABORATORY DATA:Please see below. IMAGING: Repeat CT abd/pelvis 03/07/20: 1. No evidence for pneumoperitoneum. 2. Findings compatible with small-bowel obstruction. CT Abdomen/Pelvis w/ IV contrast only : 1. Evidence for a small bowel obstruction with a transition point in the anterior aspect of the mid abdominal region located approximately 2.5 cm to the left of midline and approximately 5 cm inferior to the umbilicus, which may be secondary to an adhesion. 2. Antral gastritis. 3. Mild sigmoid diverticulosis without evidence for diverticulitis. 4. Fatty liver. MICROBIOLOGY: Please see below. ASSESSMENT: 69-year-old female with h/o ovarian CA s/p janell-adj chemo/sx resection/immunotherapy, htn, pAfib not on ac, chronic anemia, osteoporosis, and gerd, presented with abdominal distention found to have small bowel obstruction likely due to his lesions currently with nasogastric tube and general surgical consult. SBO HTN, uncontrolled Paroxysmal atrial fibrillation History of ovarian cancer H/o GERD H/o chronic anemia H/o osteoporosis PLAN: Patient is clinically improving with good bowel sounds and passing flatus. If okay with general surgery. Patient's nasogastric tube can be discontinued and she may be started on clear liquid diet. Patient's bowel obstruction is most likely secondary to adhesions. Due to uncontrolled blood pressure. Patient will be started on Norvasc may resume on all other home medications. If she continues to do well, we will wait for surgery to advance her diet and hopefully discharge home tomorrow. VS, I&O, 24H, Fishbone Vital Signs/I&O Vital Signs Date Time Temp Pulse Resp B/P (MAP) Pulse Ox O2 Delivery O2 Flow Rate FiO2 03/09/20 06:00 98.4 68 16 170/76 (107) 95 Room Air 03/07/20 02:00 2.0 I&O- Last 24 Hours up to 6 AM 03/09/20 06:00 Intake Total 3270 ml Output Total 1375 ml Balance 1895 ml Laboratory Data 24H LABS Laboratory Tests 2 03/09/20 05:15: Nucleated Red Blood Cells % (auto) 0.0, Anion Gap 4L, Glomerular Filtration Rate > 60.0, Calcium Level 7.3L, Total Bilirubin 0.4, Aspartate Amino Transf (AST/SGOT) 12, Alanine Aminotransferase (ALT/SGPT) 16, Alkaline Phosphatase 61, Total Protein 5.7L, Albumin 2.5L, Albumin/Globulin Ratio 0.8L CBC/BMP Laboratory Tests 03/09/20 05:15 Microbiology Microbiology 03/07/20 Urine Culture - Final, Complete LUCY GUTIERREZ MD Mar 09, 2020 11:36
[2020-03-09] MEDS: CYANOCOBALAMIN 500 MCG TAB PO SCH (13:14)
[2020-03-09 13:33] VITALS: BP 166/72
[2020-03-09] MEDS: MAGNESIUM CHLORIDE 64 MG TABCR (SLO MAG) PO SCH (20:50)
[2020-03-09] MEDS ORDERED: FAMOTIDINE 20 MG TAB PO SCH (21:00)
[2020-03-09 22:00] VITALS: BP 143/82
[2020-03-10 06:00] VITALS: BP 128/57
[2020-03-10] MEDS: MAGNESIUM CHLORIDE 64 MG TABCR (SLO MAG) PO SCH (08:14)
[2020-03-10] MEDS: CYANOCOBALAMIN 500 MCG TAB PO SCH (08:15)
[2020-03-10] MEDS: ENOXAPARIN 40MG/0.4ML SYRINGE (J1650 PER 10MG) SC SCH (08:15)
[2020-03-10 08:16] VITALS: BP 156/71
[2020-03-10] MEDS ORDERED: LORATADINE 10 MG TAB PO SCH (09:00)
[2020-03-10] MEDS ORDERED: MONTELUKAST 10 MG TAB PO SCH (09:00)
[2020-03-10] MEDS ORDERED: PANTOPRAZOLE 40MG TAB (PROTONIX) PO SCH (09:00)
[2020-03-10] MEDS ORDERED: amLODIPine 10 MG TAB PO SCH (09:00)
--- NOTE | 2020-03-10 10:00 | IPNPDOC ---
Date Seen The patient was seen on 03/10/20. Progress Note SUBJECTIVE: NO N/V w liquid diet, but abd feels marshall and more distended per pt, and a little more discomfort. less flatus. no bm yet. OBJECTIVE: PHYSICAL EXAMINATION: VITAL SIGNS: Please see below GENERAL APPEARANCE: aaox 3 no distress speaks in full sentences HEENT: No JVD or thyromegaly. Nasogastric tube. Dry mucous membranes , Heart: Regular rate, regular rhythm. Normal S1, S2. No murmurs or rubs appreciated. LUNGS: CTAB, no adventitious breath sounds ABDOMEN: Soft, doughy distended, hyperactive bowel sounds in 4 quadrants . Extremities:trace pitting edema bilateral lower extremities. No cyanosis, no clubbing Input and output: Reviewed LABORATORY DATA:Please see below. IMAGING: Repeat CT abd/pelvis 03/07/20: 1. No evidence for pneumoperitoneum. 2. Findings compatible with small-bowel obstruction. CT Abdomen/Pelvis w/ IV contrast only : 1. Evidence for a small bowel obstruction with a transition point in the anterior aspect of the mid abdominal region located approximately 2.5 cm to the left of midline and approximately 5 cm inferior to the umbilicus, which may be secondary to an adhesion. 2. Antral gastritis. 3. Mild sigmoid diverticulosis without evidence for diverticulitis. 4. Fatty liver. MICROBIOLOGY: Please see below. ASSESSMENT: 69-year-old female with h/o ovarian CA s/p janell-adj chemo/sx resection/immunotherapy, htn, pAfib not on ac, chronic anemia, osteoporosis, a nd gerd, presented with abdominal distention found to have small bowel obstruction likely due to his lesions currently with nasogastric tube and general surgical consult. SBO -advanced diet to liquid. dced ng tube. no n/v. -defer to surgery if ok to advance to solid diet. -dc home if tolerates solid diet HTN -started on norvasc -no c/o h/a, change in vision, or chest tightness Paroxysmal atrial fibrillation -resumed on rate control meds, and as outpt oral ac. History of ovarian cancer H/o GERD H/o chronic anemia H/o osteoporosis PLAN: dc once tolerating po diet. VS, I&O, 24H, Fishbone Vital Signs/I&O Vital Signs Date Time Temp Pulse Resp B/P (MAP) Pulse Ox O2 Delivery O2 Flow Rate FiO2 03/10/20 08:16 70 156/71 03/10/20 06:00 98.0 18 96 Room Air 03/07/20 02:00 2.0 I&O- Last 24 Hours up to 6 AM 03/10/20 06:00 Intake Total 1645 ml Output Total 1900 ml Balance -255 ml Laboratory Data Microbiology Microbiology 03/07/20 Urine Culture - Final, Complete LUCY GUTIERREZ MD Mar 10, 2020 10:00
[2020-03-10] MEDS: KETOROLAC 30 MG/ML 1ML VIAL IV PRN (14:07)
== END 2020-03-10 15:10 | disposition home or self-care (01) | DRG 390 ==
LOC: M ED 00:25 → M ED INP 04:22 → M MSPAV 06:09
PROVIDERS: ADMIT Internal Medicine; ATTEND General Practice
DX: K56.609 Unspecified intestinal obstruction, unspecified as to partial versus complete obstruction (principal); I48.0 Paroxysmal atrial fibrillation; I10 Essential (primary) hypertension; K21.9 Gastro-esophageal reflux disease without esophagitis; Z80.41 Family history of malignant neoplasm of ovary; M81.0 Age-related osteoporosis without current pathological fracture; D64.9 Anemia, unspecified; Z79.82 Long term (current) use of aspirin; Z79.899 Other long term (current) drug therapy; Z88.2 Allergy status to sulfonamides; Z91.018 Allergy to other foods; Z91.011 Allergy to milk products; K57.30 Diverticulosis of large intestine without perforation or abscess without bleeding

== ENCOUNTER → 2020-08-30 | Outpatient (CLI) | payer MEDICARE ==
[~2020-08-30] MED LIST changes: +CARA1TAB6 PO; +FAMO1TAB11 PO; +GASTROGRAFIN SOLUTION 30ML (Q9963) As Ordered ONE; +ISOVUE-370 76% 100ML VIAL As Ordered ONE; +LIDO1CRE42 TOP; -LIDO2.5C15 TOP; +MONT10TA10 PO; -MONT5TAB2 PO; +PANT40TA29 PO; +TRET0.1C19 TOP; +VOLT1GEL15 TOP
--- NOTE | 2020-08-30 18:15 | REP ---
INDICATION: EPIGASTRIC PAIN, OVARIAN CA. COMPARISON: Multiple the latest 03/07/2020 TECHNIQUE: Standard helical technique after the intravenous administration of 100 cc Isovue 370 and oral bowel preparatory contrast administration FINDINGS: Lung bases are stable. The liver, gallbladder, spleen, pancreas, adrenal glands, and kidneys are within normal limits. The abdominal aorta and para aortic regions are within normal limits. The bowel loops and the mesenteries are within normal limits. There is no mass or adenopathy. There is no free fluid or free air. Bone window technique throughout the examination shows no evidence of significant change in appearance of the imaged osseous structures IMPRESSION: CT findings are within normal limits. There is no evidence of acute disease. <Electronically signed by Devendra Cullen > 08/30/20 [id number]
== END ==
LOC: M RAD 16:10
PROVIDERS: ATTEND Internal Medicine Medical Oncology
DX: R10.13 Epigastric pain (principal); C56.9 Malignant neoplasm of unspecified ovary
CPT/HCPCS: 74177; Q9963; Q9967

== ENCOUNTER → 2020-11-05 | Outpatient (CLI) | payer MEDICARE ==
[~2020-11-05] MED LIST changes: +CLIN1GEL19; +DICL1GEL3; -DOXY100C PO; +DOXY100C3 PO; +EPLE25TA PO; +FAMO1TAB11; +FAMO20TA5; +GABA-1171; -GASTROGRAFIN SOLUTION 30ML (Q9963) As Ordered ONE; -ISOVUE-370 76% 100ML VIAL As Ordered ONE
== END ==
LOC: M LABSMTC 11:23
PROVIDERS: ATTEND Anesthesiology
DX: Z01.812 Encounter for preprocedural laboratory examination (principal)

== ENCOUNTER 2020-11-10 08:08 | Day surgery (SDC) | payer MEDICARE ==
[~2020-11-10] VITALS: Ht 165.1 cm; Wt 71.8 kg
[~2020-11-10 08:08] MED LIST changes: +NS 1,000 ML IV ONE
[2020-11-10] MEDS ORDERED: fentaNYL 100 MCG/2 ML INJECTION (J3010) As Ordered ONE (08:55)
[2020-11-10] MEDS ORDERED: LIDOCAINE 2% 100MG/5ML SDV (FOR ANES.) As Ordered ONE (08:55)
[2020-11-10] MEDS ORDERED: propofoL 200 MG/20 ML VIAL As Ordered ONE (08:55)
--- NOTE | 2020-11-10 09:25 | ROOR ---
Patient Name: Antonia Saldivar Procedure Date: 11/10/2020 9:09 AM Date of : 1950 Age: 70 Room: [facility] Gender: Female Note Status: Finalized Procedure: Upper Endoscopy + Biopsies Indications: Heartburn, Exclusion of Santos's esophagus Providers: Thomas Haji MD Referring MD: Harshad Serna MD Requesting Provider: Medicines: Monitored Anesthesia Care Complications: No immediate complications. Procedure: Pre-Anesthesia Assessment: - The heart rate, respiratory rate, oxygen saturations, blood pressure, adequacy of pulmonary ventilation, and response to care were monitored throughout the procedure. The Endoscope was introduced through the mouth, and advanced to the second part of duodenum. The upper GI endoscopy was accomplished without difficulty. The patient tolerated the procedure well. Findings: The Z-line was regular and was found 40 cm from the incisors. Multiple biopsies were obtained with cold forceps for evaluation to rule out Santos's Esophagus randomly at the gastroesophageal junction. No other significant abnormalities were identified in a careful examination of the stomach. The exam of the duodenum was otherwise normal. Impression: - Z-line regular, 40 cm from the incisors. - Multiple biopsies were obtained at the gastroesophageal junction. - The examination was otherwise normal. Recommendation: - Patient has a contact number available for emergencies. The signs and symptoms of potential delayed complications were discussed with the patient. Return to normal activities tomorrow. Written discharge instructions were provided to the patient. - High fiber diet. - Discharge patient to home. - Follow an antireflux regimen. - Continue present medications. - Await pathology results. - Telephone GI clinic for pathology results in 1 week. - Return to referring physician. - The findings and recommendations were discussed with the patient's family. Procedure Code(s): --- Professional --- 58790, Esophagogastroduodenoscopy, flexible, transoral; with biopsy, single or multiple Diagnosis Code(s): --- Professional --- R12, Heartburn CPT copyright 2019 [employer]. All rights reserved. The codes documented in this report are preliminary and upon clay pigeon setter review may be revised to meet current compliance requirements. Thomas Haji MD Thomas Haji MD 11/10/2020 9:24:41 AM Electronically signed by Thomas Haji MD Number of Addenda: 0 Note Initiated On: 11/10/2020 9:09 AM Estimated Blood Loss: Estimated blood loss: none.
--- NOTE | 2020-11-10 09:46 | ROOR ---
Patient Name: Antonia Saldivar Procedure Date: 11/10/2020 9:10 AM Date of : 1950 Age: 70 Room: [facility] Gender: Female Note Status: Finalized Procedure: Total Colonoscopy to Cecum Indications: Screening for colorectal malignant neoplasm Providers: Thomas Haji MD Referring MD: Harshad Serna MD Requesting Provider: Medicines: Monitored Anesthesia Care Complications: No immediate complications. Procedure: Pre-Anesthesia Assessment: - The heart rate, respiratory rate, oxygen saturations, blood pressure, adequacy of pulmonary ventilation, and response to care were monitored throughout the procedure. The Colonoscope was introduced through the anus and advanced to the cecum, identified by appendiceal orifice and ileocecal valve. The colonoscopy was performed without difficulty. The patient tolerated the procedure well. The quality of the bowel preparation was good. Findings: The perianal and digital rectal examinations were normal. Non-bleeding internal hemorrhoids were found during retroflexion. The hemorrhoids were small and Grade I (internal hemorrhoids that do not prolapse). Scattered small-mouthed diverticula were found in the recto-sigmoid colon, sigmoid colon and descending colon. The exam was otherwise without abnormality on direct and retroflexion views. Impression: - Non-bleeding internal hemorrhoids. - Diverticulosis in the recto-sigmoid colon, in the sigmoid colon and in the descending colon. - The examination was otherwise normal on direct and retroflexion views. - No specimens collected. - The exam was otherwise normal to the cecum. Recommendation: - Patient has a contact number available for emergencies. The signs and symptoms of potential delayed complications were discussed with the patient. Return to normal activities tomorrow. Written discharge instructions were provided to the patient. - High fiber diet. - Discharge patient to home. - Continue present medications. - Repeat colonoscopy in 10 years for screening purposes. - Return to referring physician. - The findings and recommendations were discussed with the patient's family. Procedure Code(s): --- Professional --- 30395, Colonoscopy, flexible; diagnostic, including collection of specimen(s) by brushing or washing, when performed (separate procedure) Diagnosis Code(s): --- Professional --- Z12.11, Encounter for screening for malignant neoplasm of colon K64.0, First degree hemorrhoids K57.30, Diverticulosis of large intestine without perforation or abscess without bleeding CPT copyright 2019 [employer]. All rights reserved. The codes documented in this report are preliminary and upon protein specialist review may be revised to meet current compliance requirements. Thomas Haji MD Thomas Haji MD 11/10/2020 9:46:10 AM Electronically signed by Thomas Haji MD Number of Addenda: 0 Note Initiated On: 11/10/2020 9:10 AM Estimated Blood Loss: Estimated blood loss: none.
[2020-11-10 10:05] VITALS: BP 154/70
== END 2020-11-10 10:28 | disposition home or self-care (01) ==
LOC: M OPP 08:08
PROVIDERS: ATTEND Internal Medicine Gastroenterology
DX: Z12.11 Encounter for screening for malignant neoplasm of colon (principal); K57.30 Diverticulosis of large intestine without perforation or abscess without bleeding; K64.0 First degree hemorrhoids; R12 Heartburn; K21.9 Gastro-esophageal reflux disease without esophagitis; K31.89 Other diseases of stomach and duodenum; Z79.2 Long term (current) use of antibiotics; Z79.82 Long term (current) use of aspirin; Z79.899 Other long term (current) drug therapy; Z88.2 Allergy status to sulfonamides
CPT/HCPCS: 43239; 88305; G0121; J3010

== ENCOUNTER → 2020-11-24 | Outpatient (CLI) | payer MEDICARE ==
[~2020-11-24] MED LIST changes: -NS 1,000 ML IV ONE
[2020-11-24 13:36] LABS: CHOLESTEROL RISK RATIO 2.859 (<5)
== END ==
LOC: M PLALAB 10:07
PROVIDERS: ATTEND Internal Medicine
DX: I10 Essential (primary) hypertension (principal)

== ENCOUNTER → 2021-02-19 | Outpatient (REF) | payer MEDICARE ==
[~2021-02-19] MED LIST changes: +D 101000 PO; -DICL1GEL3; +FERR325T3 PO; -KLOR10TA76 PO; +POTA-136 PO; +gaviscon PO
== END ==
LOC: M LAB REF 15:01
PROVIDERS: ATTEND Internal Medicine Medical Oncology
DX: C56.2 Malignant neoplasm of left ovary (principal)

== ENCOUNTER → 2021-02-25 | Outpatient (REF) | payer MEDICARE ==
[~2021-02-25] MED LIST changes: -MONT10TA10 PO; +MONT10TA97 PO; -PROC10TA4 PO; +PROC10TA5 PO
== END ==
LOC: M LAB REF 16:11
PROVIDERS: ATTEND Internal Medicine Medical Oncology
DX: C56.2 Malignant neoplasm of left ovary (principal)

== ENCOUNTER → 2021-06-09 | Outpatient (CLI) | payer MEDICARE ==
[2021-06-09 15:42] LABS: BASO % 0.8 % (0.0-1.0); EOS # 0.1 10^3/uL (0.0-0.5); EOS % 2.3 % (0.0-3.0); HEMATOCRIT 38.2 % (36.0-47.0); LYMPH # 1.3 10^3/uL (1.5-5.0); LYMPH % 27.1 % (24.0-44.0); MEAN CORPUSCULAR HEMOGLOBIN 29.9 pg (27.0-33.0); MEAN CORPUSCULAR HGB CONC 31.4 g/dl (32.0-36.5); MONO # 0.5 10^3/uL (0.0-0.8); MONO % 10.4 % (2.0-8.0); NEUTROPHILS # 2.9 10^3/uL (1.5-8.5); NEUTROPHILS % 59.2 % (36.0-66.0); PLATELET COUNT, AUTOMATED 308 10^3/uL (150-450); RED BLOOD COUNT 4.02 10^6/uL (4.00-5.40); WHITE BLOOD COUNT 4.8 10^3/uL (4.0-10.0)
[2021-06-09 16:05] LABS: BLOOD UREA NITROGEN 16 MG/DL (7-18); CALCIUM LEVEL 9.5 MG/DL (8.8-10.2); CARBON DIOXIDE LEVEL 35 MEQ/L (21-32); CHLORIDE LEVEL 107 MEQ/L (98-107); CREATININE FOR GFR 0.61 MG/DL (0.55-1.30); FERRITIN 28 NG/ML (8-252); GLOMERULAR FILTRATION RATE > 60.0 (>39); GLUCOSE, FASTING 86 MG/DL (70-100); IRON (FE) 80 UG/DL (50-170); PERCENT SATURATION 22.3 % (13.2-45.0); POTASSIUM SERUM 4.4 MEQ/L (3.5-5.1); SODIUM LEVEL 143 MEQ/L (136-145); TOTAL IRON BINDING CAPACITY 358 UG/DL (250-450)
[2021-06-09 16:11] LABS: VITAMIN B12 LEVEL 1849 PG/ML
[2021-06-09 16:37] LABS: FOLATE 19.5 NG/ML
== END ==
LOC: M PLALAB 12:14
PROVIDERS: ATTEND Internal Medicine Gastroenterology
DX: D50.9 Iron deficiency anemia, unspecified (principal)

== ENCOUNTER → 2021-10-12 | Outpatient (CLI) | payer MEDICARE ==
[~2021-10-12] MED LIST changes: +GASTROGRAFIN SOLUTION 30ML (Q9963) As Ordered ONE; +GAVISUS PO; +ISOVUE-370 76% 100ML VIAL As Ordered ONE; +MIRA3350 PO; +SODI5OPD OU
== END ==
LOC: M RAD 14:52
PROVIDERS: ATTEND Internal Medicine Medical Oncology
DX: C56.9 Malignant neoplasm of unspecified ovary (principal)
CPT/HCPCS: 71260; 74177; Q9963; Q9967

== ENCOUNTER → 2022-01-06 | Outpatient (CLI) | payer MEDICARE ==
[~2022-01-06] MED LIST changes: -GASTROGRAFIN SOLUTION 30ML (Q9963) As Ordered ONE; -ISOVUE-370 76% 100ML VIAL As Ordered ONE
== END ==
LOC: M PLARAD 09:48
PROVIDERS: ATTEND Internal Medicine Medical Oncology
DX: R42 Dizziness and giddiness (principal); C56.9 Malignant neoplasm of unspecified ovary

== ENCOUNTER → 2022-04-11 | Outpatient (CLI) | payer MEDICARE ==
[~2022-04-11] MED LIST changes: -DOXY-350 PO; +DOXY-444 PO; +GASTROGRAFIN SOLUTION 30ML As Ordered ONE; +ISOVUE-370 76% 100ML VIAL As Ordered ONE
== END ==
LOC: M RAD 08:53
PROVIDERS: ATTEND Internal Medicine Medical Oncology
DX: C56.9 Malignant neoplasm of unspecified ovary (principal); R91.8 Other nonspecific abnormal finding of lung field
CPT/HCPCS: 71260; 74177; Q9963; Q9967

== ENCOUNTER → 2022-04-11 | Outpatient (CLI) | payer MEDICARE ==
[~2022-04-11] MED LIST changes: -GASTROGRAFIN SOLUTION 30ML As Ordered ONE; -ISOVUE-370 76% 100ML VIAL As Ordered ONE
[2022-04-11 11:13] LABS: HEMATOCRIT 38.6 % (36.0-47.0); HEMOGLOBIN 12.3 g/dl (12.0-15.5); MEAN CORPUSCULAR HEMOGLOBIN 32.9 pg (27.0-33.0); MEAN CORPUSCULAR HGB CONC 31.9 g/dl (32.0-36.5); MEAN CORPUSCULAR VOLUME 103.2 fl (80.0-96.0); PLATELET COUNT, AUTOMATED 300 10^3/uL (150-450); RED BLOOD COUNT 3.74 10^6/uL (4.00-5.40)
[2022-04-11 11:36] LABS: HEMOGLOBIN A1c 5.1 % (4.0-6.0)
[2022-04-11 11:45] LABS: CREATININE, URINE 84.9 MG/DL
[2022-04-11 11:47] LABS: MAU/CREAT RATIO 5.8 MCG/MG (0.0-30.0)
[2022-04-11 11:48] LABS: THYROID STIMULATING HORMONE 1.836 uIU/ML (0.55-4.78); TOTAL 25(OH) VITAMIN D 53.4 NG/ML (20.0-100.0); VITAMIN B12 LEVEL 1284 PG/ML (211-911)
[2022-04-11 11:50] LABS: FREE T4 1.08 NG/DL (0.89-1.76)
[2022-04-11 11:56] LABS: ALBUMIN 3.7 G/DL (3.2-5.2); ALKALINE PHOSPHATASE 106 U/L (46-116); ALT/SGPT 17 U/L (7.0-40); AST/SGOT 17 U/L (<34); BILIRUBIN,TOTAL 0.3 MG/DL (0.3-1.2); BLOOD UREA NITROGEN 19 MG/DL (9-23); CALCIUM LEVEL 9.3 MG/DL (8.3-10.6); CARBON DIOXIDE LEVEL 30 MMOL/L (20-31); CHLORIDE LEVEL 105 MMOL/L (98-107); CHOLESTEROL LEVEL 156 MG/DL (<200); CHOLESTEROL RISK RATIO 3.05 (<5); CREATININE FOR GFR 0.59 MG/DL (0.55-1.30); GLOMERULAR FILTRATION RATE > 60.0 (>39); GLUCOSE, FASTING 86 MG/DL (74-106); HDL CHOLESTEROL 51.1 MG/DL (>40); LDL CHOLESTEROL 84.5 MG/DL (<100); NON-HDL-C 105 MG/DL; POTASSIUM SERUM 4.5 MMOL/L (3.5-5.1); SODIUM LEVEL 143 MMOL/L (136-145); TRIGLYCERIDES LEVEL 102 MG/DL (<150)
== END ==
LOC: M PLALAB 08:28
PROVIDERS: ATTEND Internal Medicine Hematology
DX: E78.5 Hyperlipidemia, unspecified (principal); Z79.899 Other long term (current) drug therapy

== ENCOUNTER → 2022-05-23 | Outpatient (CLI) | payer MEDICARE ==
[2022-05-23 14:05] LABS: MAGNESIUM LEVEL 1.9 MG/DL (1.8-2.4)
[2022-05-23 14:08] LABS: THYROID STIMULATING HORMONE 1.422 uIU/ML (0.55-4.78)
== END ==
LOC: M PLALAB 11:49
PROVIDERS: ATTEND Physician Assistant
DX: I47.20 Ventricular tachycardia, unspecified (principal); E07.9 Disorder of thyroid, unspecified

== ENCOUNTER → 2022-10-26 | Outpatient (CLI) | payer MEDICARE ==
[~2022-10-26] MED LIST changes: +DICL100G10 TOP; -DICL1GEL3 TOP; +FLORAJEN PO; -LIDO1CRE42 TOP; +LIDO30CR18 TOP; +SODI1SOL4 OU; -SODI5OPD OU
[2022-10-26 15:22] LABS: HEMOGLOBIN A1c 5.1 % (4.0-6.0)
[2022-10-26 15:38] LABS: HDL CHOLESTEROL 51.3 MG/DL (>40); LDL CHOLESTEROL 84.7 MG/DL (<100); NON-HDL-C 102.7 MG/DL
[2022-10-26 16:24] LABS: C REACTIVE PROTEIN QUANTITATIV 1.3 MG/DL (<1.0)
== END ==
LOC: M PLALAB 11:35
PROVIDERS: ATTEND Internal Medicine Hematology
DX: I49.9 Cardiac arrhythmia, unspecified (principal)

== ENCOUNTER → 2023-04-12 | Outpatient (CLI) | payer MEDICARE ==
[~2023-04-12] MED LIST changes: +CARV3.12
== END ==
LOC: M PLARAD 11:00
PROVIDERS: ATTEND Internal Medicine Hematology
DX: M54.12 Radiculopathy, cervical region (principal)

== ENCOUNTER → 2023-05-02 | Outpatient (CLI) | payer MEDICARE ==
[~2023-05-02] MED LIST changes: +GASTROGRAFIN SOLUTION 30ML As Ordered ONE; +ISOVUE-370 76% 100ML VIAL As Ordered ONE
== END ==
LOC: M RAD 13:04
PROVIDERS: ATTEND Internal Medicine Medical Oncology
DX: C56.9 Malignant neoplasm of unspecified ovary (principal)
CPT/HCPCS: 71260; 74177; Q9963; Q9967

== ENCOUNTER → 2023-06-08 | Outpatient (CLI) | payer MEDICARE ==
[~2023-06-08] MED LIST changes: -GASTROGRAFIN SOLUTION 30ML As Ordered ONE; -ISOVUE-370 76% 100ML VIAL As Ordered ONE
[2023-06-08 13:55] LABS: HEMATOCRIT 40.4 % (36.0-47.0); HEMOGLOBIN 12.6 g/dl (12.0-15.5); MEAN CORPUSCULAR HGB CONC 31.2 g/dl (32.0-36.5); MEAN CORPUSCULAR VOLUME 99.5 fl (80.0-96.0); PLATELET COUNT, AUTOMATED 304 10^3/uL (150-450); RED BLOOD COUNT 4.06 10^6/uL (4.00-5.40); WHITE BLOOD COUNT 5.2 10^3/uL (4.0-10.0)
[2023-06-08 13:56] LABS: C REACTIVE PROTEIN QUANTITATIV 1.1 MG/DL (<1.0)
[2023-06-08 13:58] LABS: CHOLESTEROL RISK RATIO 2.8 (<5); HDL CHOLESTEROL 53.5 MG/DL (>40); LDL CHOLESTEROL 81.1 MG/DL (<100); NON-HDL-C 96.5 MG/DL; PERCENT SATURATION 27.2 % (13.2-45.0)
[2023-06-08 14:01] LABS: THYROID STIMULATING HORMONE 1.636 uIU/ML (0.55-4.78)
[2023-06-08 14:02] LABS: FREE T4 1.02 NG/DL (0.89-1.76)
[2023-06-08 14:10] LABS: HEMOGLOBIN A1c 5.5 % (4.0-6.0)
== END ==
LOC: M PLALAB 10:29
PROVIDERS: ATTEND Internal Medicine Hematology
DX: I49.9 Cardiac arrhythmia, unspecified (principal); D64.9 Anemia, unspecified; Z79.899 Other long term (current) drug therapy

== ENCOUNTER → 2023-11-06 | Outpatient (CLI) | payer MEDICARE ==
[~2023-11-06] MED LIST changes: -CARV3.12; +CARV3.12 PO; +DOXY-440 PO; -DOXY-444 PO; -EPLE25TA PO; +EPLE25TA2 PO; +FLORCAP6 PO; +FLUT1BLS5 INH; +FLUTISP; +ONDA-284 PO; -ONDA8TAB8 PO
[2023-11-06 13:25] LABS: ALBUMIN 3.6 G/DL (3.2-5.2); BILIRUBIN,DIRECT 0.1 MG/DL (<0.4); BILIRUBIN,TOTAL 0.4 MG/DL (0.3-1.2); CHOLESTEROL RISK RATIO 3.33 (<5); HDL CHOLESTEROL 46.2 MG/DL (>40); LDL CHOLESTEROL 86.6 MG/DL (<100); NON-HDL-C 107.8 MG/DL; TOTAL PROTEIN 7.1 G/DL (5.7-8.2)
== END ==
LOC: M PLALAB 10:45
PROVIDERS: ATTEND Physician Assistant
DX: E78.00 Pure hypercholesterolemia, unspecified (principal); Z13.220 Encounter for screening for lipoid disorders

== ENCOUNTER → 2023-11-07 | Outpatient (CLI) | payer MEDICARE | LOC: M PLAIMG 15:52 | PROVIDERS: ATTEND Internal Medicine Hematology | DX: R05.3 Chronic cough (principal) ==

== ENCOUNTER → 2024-01-07 | Outpatient (CLI) | payer MEDICARE ==
[~2024-01-07] MED LIST changes: +EPLE25TA15 PO; -EPLE25TA2 PO; +PRED20TA PO
== END ==
LOC: M EKG 14:13
PROVIDERS: ATTEND Physician Assistant
DX: R00.2 Palpitations (principal)

== ENCOUNTER → 2024-04-07 | Outpatient (CLI) | payer MEDICARE ==
[~2024-04-07] MED LIST changes: +ISOVUE-370 76% 100ML VIAL ONE
== END ==
LOC: M PLAIMG 10:39
PROVIDERS: ATTEND Internal Medicine Medical Oncology
DX: C79.60 Secondary malignant neoplasm of unspecified ovary (principal)
CPT/HCPCS: 71260; 74177; Q9967

== ENCOUNTER → 2025-01-29 | Outpatient (REF) | payer MEDICARE ==
[~2025-01-29] MED LIST changes: -FLUO0.0119 OTIC; +FLUO0.0126 OTIC; -ISOVUE-370 76% 100ML VIAL ONE
== END ==
LOC: M LAB REF 14:13
PROVIDERS: ATTEND Student in an Organized Health Care Education/Training Program
DX: R30.0 Dysuria (principal)